=== PATIENT | male | born 1955 | race Caucasian/White ===

== ENCOUNTER 2017-10-25 09:29 | Emergency (ER) | payer BC, OTHER ==
--- NOTE | 2017-10-25 09:37 | UC ---
Skin Complaint HPI - HPI Summary HPI Summary: 62 yo male presents with ?skin infection to right lower abdomen. He tells me that he has had multiple abdominal surgeries over the last 10 years and has had this happen in the past where he gets "infections" around his scar tissue. He tells me that 3 days ago he noticed some redness and hardness to his right lower abdomen. Has been getting larger and harder since that time. Mild pain and warmth. Denies fever, chills, SOB, chest pain, n/v/d/c. - History of Current Complaint Time Seen by Provider: 10/25/17 09:37 Stated Complaint: SKIN COMPLAINT Hx Obtained From: Patient Onset/Duration: Gradual Onset Onset Severity: Mild Current Severity: Mild Pain Intensity: 2 Pain Scale Used: 0-10 Numeric - Allergy/Home Medications Allergies/Adverse Reactions: Allergies Allergy/AdvReac Type Severity Reaction Status Date / Time No Known Allergies Allergy Verified 10/25/17 09:40 Review of Systems Constitutional: Negative Skin: Other - Abscess abdomen Respiratory: Negative Cardiovascular: Negative Gastrointestinal: Negative Neurovascular: Negative Neurological: Negative Psychological: Negative All Other Systems Reviewed And Are Negative: Yes PMH/Surg Hx/FS Hx/Imm Hx Endocrine History: Hypothyroidism - Surgical History Surgical History: Yes Surgery Procedure, Year, and Place: hernia repair abd x 2, prostate surgery, surgery for diverticulitis - Family History Known Family History: Positive: Hypertension - father, Diabetes - brother - Social History Occupation: Employed Full-time Lives: With Family Alcohol Use: None Substance Use Type: None Smoking Status (MU): Heavy Every Day Tobacco Smoker Type: Cigarettes Amount Used/How Often: 1 ppd Physical Exam - Summary Physical Exam Summary: GENERAL: NAD. WDWN. No pain distress. SKIN: Abdomen right lower quad: 3.0cm diameter of hardness and mild tenderness with surrounding erythema. No streaking, bleeding, or drainage. NECK: Supple. Nontender. No lymphadenopathy. CHEST: No accessory muscle use. Breathing comfortably and in no distress. CV: Pulses intact. Cap refill <2seconds NEURO: Alert. CN II-XII grossly intact. PSYCH: Age appropriate behavior. Triage Information Reviewed: Yes Vital Signs: Vital Signs: Temp Pulse Resp BP Pulse Ox 98.2 F 94 18 119/74 99 10/25/17 09:37 10/25/17 09:37 10/25/17 09:37 10/25/17 09:37 10/25/17 09:37 Vital Signs Reviewed: Yes Course/Dx - Course Course Of Treatment: A time out was performed, witnessed, and signed. The area was cleansed with an alcohol pad. 2mL of 2% lidocaine without epi was administered and good anesthetization was achieved. A #11 blade was used to make a 5mm vertical incision. Serosanguineous fluid was able to be expressed, but no purulent matter. The wound was bandaged with telfa . Pt tolerated procedure well. Suspect that this could be cystic or fluid accumulations around adhesions/scar tissue. Will cover him for cellulitis or infectious process, but strongly advised to f/u with his PCP or gen surg for further eval. Pt has an appt on 10/30 with his PCP. - Diagnoses Provider Diagnoses: skin abscess abdomen Procedures - Incision and Drainage Right Lower Abdomen Anesthesia: Local Instrument(s): Scalpel - 11 Packing: Other - None Discharge - Sign-Out/Discharge Documenting (check all that apply): Patient Departure All imaging exams completed and their final reports reviewed: No Studies - Discharge Plan Condition: Stable Disposition: HOME Prescriptions: Sulfamethox/Trimethoprim DS* [Bactrim DS 800/160 TAB*] 1 tab PO BID #14 tab Patient Education Materials: Abscess (ED) Referrals: Herve Jalloh MD [Primary Care Provider] - Additional Instructions: If you develop a fever, shortness of breath, chest pain, new or worsening symptoms - please call your PCP or go to the ED. - Billing Disposition and Condition Condition: STABLE Disposition: Home
[2017-10-25 09:41] VITALS: BP 119/74
[2017-10-25] MEDS ORDERED: Lidocaine 2% PF * 5 ML VIAL INJ ONE (09:49)
== END 2017-10-25 10:30 | disposition home or self-care (01) ==
LOC: UCEAST 09:29
DX: L02.211 Cutaneous abscess of abdominal wall (principal); E03.9 Hypothyroidism, unspecified
CPT/HCPCS: 10060; 99212; G0463

== ENCOUNTER 2017-11-06 09:36 | Inpatient (IN) | payer BC ==
[~2017-11-06 09:36] MED LIST: Buffered Lidocaine 0.9% SYRIN* 5 ML/SYR SYRINGE INTRADERM ONE; Sodium Citrate/Citric Acid* 15 ML UDC PO ONE; ZOSYN 3.375 GM x ONE DOSE over 30 miuntes IVPB
[2017-11-06] MEDS ORDERED: Sodium Citrate/Citric Acid* 15 ML UDC ONE (10:02)
[2017-11-06] MEDS ORDERED: Acetaminophen IV 1GM/100ML * 1,000 MG/100 ML VIAL IVPB ONE (12:25)
[2017-11-06] MEDS ORDERED: Naloxone* 0.4 MG/ML 1 ML VIAL IV PRN (12:25)
[2017-11-06] MEDS ORDERED: DiMENhydriNATE IV* 50 MG/ML VIAL IV PUSH PRN (12:25)
[2017-11-06] MEDS ORDERED: fentaNYL* 50 MCG/ML 2 ML VIAL (100 MCG VIAL) ONE ×2 (12:29→15:33)
[2017-11-06] MEDS ORDERED: Midazolam* 1 MG/ML 2 ML VIAL (2 MG) ONE (12:30)
[2017-11-06] MEDS ORDERED: Lidocaine 2% PF * 5 ML VIAL ONE (12:30)
[2017-11-06] MEDS ORDERED: Propofol* 10 MG/ML 20 ML BTL IV PUSH ONE (12:30)
[2017-11-06] MEDS ORDERED: Rocuronium* 10 MG/ML VIAL ONE ×2 (12:31→13:16)
[2017-11-06] MEDS ORDERED: KETAMINE HCL* 50 MG/ML 10 ML VIAL ONE (12:44)
[2017-11-06] MEDS ORDERED: Neostigmine Methylsulfate* 1 MG/ML 10 ML VIAL (1 mg/ml) ONE (14:43)
[2017-11-06] MEDS ORDERED: Glycopyrrolate IV* 0.2 MG/ML 1 ML VIAL ONE (14:43)
[2017-11-06] MEDS ORDERED: Ondansetron INJ* 2 MG/ML VIAL ONE (14:44)
[2017-11-06] MEDS ORDERED: Ketorolac INJ* 30 MG/ML 1 ML VIAL ONE (15:00)
[2017-11-06 15:43] LABS: ABS Basophils 0.1 10^3/ul (0-0.2); ABS Eosinophils 0.2 10^3/ul (0-0.6); ABS Lymphocytes 2.2 10^3/ul (1.0-4.8); ABS Monocytes 1.2 10^3/ul (0-0.8); ABS Neutrophils 14.4 10^3/ul (1.5-7.7); ABS Nucleated RBC 0 10^3/ul; Eosinophil % 1.2 % (0-6); Hematocrit 34 % (42-52); Hemoglobin 10.9 g/dl (14.0-18.0); Lymphocyte % 12.1 % (25-47); Mean Corpuscular HGB Conc 33 g/dl (31-36); Mean Corpuscular Hemoglobin 28 pg (27-31); Mean Corpuscular Volume 86 fL (80-94); Mean Platelet Volume 7.7 um3 (7.4-10.4); Nucleated Red Blood Cells % 0.1; Platelet Count 395 10^3/ul (150-450); Red Blood Count 3.93 10^6/ul (4.00-5.40); Red Cell Distribution Width 15 % (10.5-15); White Blood Count 18.1 10^3/ul (3.5-10.8)
[2017-11-06 15:54] LABS: EGFR Non-African American 95.9 (>60)
[2017-11-06] MEDS ORDERED: Acetaminophen IV 1GM/100ML * 100 ML ONE (16:19)
[2017-11-06] MEDS ORDERED: fentaNYL* 50 MCG/ML 5 ML VIAL (250 MCG VIAL) ONE (16:19)
[2017-11-06] MEDS: fentaNYL* 50 MCG/ML 2 ML VIAL (100 MCG VIAL) IV PRN ×4 (16:21→16:49)
[2017-11-06] MEDS ORDERED: HYDROmorphone PCA* 20 MG/20 ML PCA.SYRING ONE (16:30)
[2017-11-06] MEDS ORDERED: D5LR 1000 ML BAG* 1,000 ML IV SCH (17:00)
[2017-11-06] MEDS ORDERED: HYDROmorphone INJ1* 1 MG/ML SYRINGE ONE (17:47)
[2017-11-06] MEDS ORDERED: Piperacillin/Tazobactam VIAL*) 3.375 GM in NS 0.9% 100 ML* 100 ML IVPB SCH (18:00)
[2017-11-06] MEDS ORDERED: Naloxone* 0.4 MG/ML 1 ML VIAL IV PUSH PRN (18:44)
[2017-11-06] MEDS ORDERED: NS 0.9% 1000 ML* 1,000 ML IV SCH ×2 (18:45→19:30)
[2017-11-06] MEDS ORDERED: HYDROmorphone INJ1* 1 MG/ML SYRINGE IV ONE (19:00)
[2017-11-06] MEDS: Ketorolac INJ* 30 MG/ML 1 ML VIAL IV SCH (21:50)
[2017-11-06] MEDS: Docusate CAP* 100 MG PO SCH (21:50)
[2017-11-06] MEDS: Heparin VIAL(*) 5000 UNITS/ML VIAL (FIVE THOUSAND) SUBCUT SCH (21:56)
[2017-11-06] MEDS: Piperacillin/Tazobactam VIAL*) 3.375 GM in NS 0.9% 100 ML* 100 ML IVPB SCH (21:56)
--- NOTE | 2017-11-07 01:29 | OP ---
CC: Dr. Jalloh * DATE OF OPERATION: 11/06/17 - ROOM #347 DATE OF : 51 SURGEON: Joaquin Berrios MD DIRECTOR OF CASINO MARKETING: Vanessa Valerio NP ANESTHESIOLOGIST: Dr. Gee. ANESTHESIA: General anesthetic. 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 OPERATIVE PROCEDURE: Evacuation of abdominal abscess with en bloc resection of small bowel with infected mesh. DESCRIPTION OF PROCEDURE: The patient was supine on the operative table. After adequate general anesthetic, compression stockings, Patrice Hugger warmer, intravenous antibiotics, the abdomen was prepped with antiseptic and draped in a sterile fashion. The right side of the abdomen was manipulated thereby causing some purulence to exit the chronic sinus tract and this was sent for culture. An elliptical incision was then created encompassing the chronic sinus tract and this was carried down to some dense fibrotic reactive tissue, which extended well out into the right abdomen by palpation. It was felt best to enter the abdomen above and below this area and that was then accomplished. Small bowel adhesions were taken down until it was identified that there was a single loop of small bowel that was fibrotically adherent down to the back of the mesh, and therefore would have to be taken off with the mesh, the bowel before and after the side was divided with a SANTHOSH stapler and then the bowel and mesh were removed en bloc with evacuation of the abscess that was feculent smelling and bile stained. The specimen included the small bowel, the mesh and the chronic sinus tract. This was sent in formalin for pathologic evaluation. Reanastomosis was carried out using a SANTHOSH 60 stapler. Silk suture was used to reinforce the staple line and secure the crotch in the anastomosis. The mesenteric defect was closed with Vicryl suture. The bowel was dropped back into the abdominal cavity. Copious irrigation was carried out throughout the abdominal cavity. There was a partial thickness muscular defect in the right abdomen with the mesh had been adherent. This was closed transversely with #1 Vicryl. The midline fascia was then closed using #1 PDS and double-loop PDS was used for internal retention sutures. The wound was then irrigated impact with saline soaked gauze and bulky gauze dressing. He was awakened and brought to recovery in good condition. No complications. No drains. Pathologic specimen as above. Sponge and instrument counts correct. Estimated blood loss was 200 mL. [id number]/[facility] #: [id number] [facility]
[2017-11-07] MEDS: Ketorolac INJ* 30 MG/ML 1 ML VIAL IV SCH ×4 (02:32→20:41)
[2017-11-07] MEDS: Levothyroxine TAB* 175 MCG TAB PO SCH (05:58)
[2017-11-07] MEDS: Piperacillin/Tazobactam VIAL*) 3.375 GM in NS 0.9% 100 ML* 100 ML IVPB SCH ×3 (05:58→23:34)
[2017-11-07] MEDS: Heparin VIAL(*) 5000 UNITS/ML VIAL (FIVE THOUSAND) SUBCUT SCH ×3 (05:59→23:33)
[2017-11-07 06:18] LABS: ABS Basophils 0.1 10^3/ul (0-0.2); ABS Eosinophils 0.1 10^3/ul (0-0.6); ABS Lymphocytes 1.5 10^3/ul (1.0-4.8); ABS Monocytes 0.9 10^3/ul (0-0.8); ABS Neutrophils 15.4 10^3/ul (1.5-7.7); ABS Nucleated RBC 0 10^3/ul; Eosinophil % 0.3 % (0-6); Hematocrit 34 % (42-52); Hemoglobin 11.1 g/dl (14.0-18.0); Lymphocyte % 8.6 % (25-47); Mean Corpuscular HGB Conc 33 g/dl (31-36); Mean Corpuscular Hemoglobin 28 pg (27-31); Mean Corpuscular Volume 86 fL (80-94); Mean Platelet Volume 7.7 um3 (7.4-10.4); Nucleated Red Blood Cells % 0; Platelet Count 360 10^3/ul (150-450); Red Blood Count 3.91 10^6/ul (4.00-5.40); Red Cell Distribution Width 15 % (10.5-15)
[2017-11-07] MEDS: Docusate CAP* 100 MG PO SCH ×2 (08:19→23:33)
[2017-11-07] MEDS: NS 0.9% 1000 ML* 1,000 ML IV SCH (11:27)
[2017-11-07] MEDS: HYDROmorphone PCA* 20 MG/20 ML PCA.SYRING PCA SCH (14:51)
--- NOTE | 2017-11-07 15:14 | PN ---
Progress Note - Progress Note Date of Service: 11/07/17 Note: Abdominal dressing changed,open midline wound,clean;less surrounding erythema; minimal tenderness;moist normal saline kerlix packed into wound and covered with bulky 4x4's and abd pads. Juan,PAINTER MIRROR
[2017-11-07] MEDS: Acetaminophen TAB* 325 MG PO PRN (17:56)
[2017-11-08] MEDS: Ketorolac INJ* 30 MG/ML 1 ML VIAL IV SCH ×3 (02:13→14:50)
[2017-11-08] MEDS: Ondansetron INJ* 2 MG/ML VIAL IV PRN ×2 (03:59→12:15)
[2017-11-08] MEDS ORDERED: Aspirin 81 mg CHEW TAB* 81 MG TAB.CHEW PO ONE (05:38)
[2017-11-08] MEDS ORDERED: Metoprolol Tartrate TAB* 25 MG PO ONE (05:40)
--- NOTE | 2017-11-08 05:42 | CONSULT ---
Consult Consult: PCP: Belkis Jalloh MD Surgery: Belkis Flores MD Date/Time: [id number] Reason for Consult: chest pressure HPI: Mr Mai is a 62YO male HX hypothyroidism and prostate CA who is POD 2 s/p infected hernia mesh removal. He has had intermittent brief episodes of non- exertional non-radiating chest pressure. While he has had some mild SOB, this is not unexpected post-op abdominal surgery. He has also had some sweating and nausea with dry heaves, again not unreasonable given his infection and post-op status. These symptoms have not correlated with the chest pressure. He has had no palpitations nor light-headedness. He is obese and smokes ~1/4PPD cigarettes , but does not have HTN, HLD, DM2, personal or family HX CAD. He is currently pain-free and is unaware of any exacerbating or alleviating factors. 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 Father passed at 75 2nd perforated gastric ulcer w/ HX prostate CA. Youngest brother is alive at 59 and healthy. Middle brother passed at 50 2nd tongue CA. Oldest brother is alive & recently diagnosed with colon CA. ROS: as above, otherwise reviewed and all were negative vitals: Vital Signs Temp 36.6 C 11/08/17 03:08 Pulse 95 11/08/17 03:08 Resp 20 11/08/17 04:15 BP 114/63 11/08/17 03:08 Pulse Ox 95 11/08/17 04:15 Intake & Output 09/09/1711/07/17 11/08/17 11:59 23:59 11:59 Intake Total 545 3679 Output Total 275 575 Balance 270 3104 Intake: IV Fluids 2009 ABX - ZOSYN 130 NS (0.9%) 1880 IVPB 105 129 ABX - ZOSYN 105 129 Oral 440 1540 Output: Urine 0 575 [place]far[place] 275 Other: Estimated Void Medium Medium # Voids 1 1 Constitutional: NAD, normally developed, obese white male HEENM: atraumatic; sclera/conjunctiva: anicteric/clear; hearing: clinically intact; oropharynx: clear, mucosa moist Neck: soft tissue: non-tender; thyroid: normal Pulmonary: clear to auscultation bilaterally, good aeration, no accessory muscle use CV: RR/RR, normal S1S2, no carotid bruit, no jugular venous distention, 2+ B DP/ PT, no edema Abdominal: soft, non-distended, diffusely moderately tender within the expected range for his recent surgery, no rebound/rigidity, hypoactive bowel sounds, no hepatosplenomegaly or masses, no costovertebral angle tenderness Musculoskeletal: general: grossly intact, non-tender Integumental: normal appearance and texture of exposed skin, abdominal dressing in place Psychiatric orientation: AA&O to PPS affect: calm mood: cooperative eye contact: good content: reliable responses: timely insight: good Testing: Lab Results 11/06/17 11/06/17 11/07/17 Range/Units 15:19 15:19 05:52 WBC 18.1 H 18.0 H (3.5-10.8) 10^3/ul RBC 3.93 L 3.91 L (4.00-5.40) 10^6/ul Hgb 10.9 L 11.1 L (14.0-18.0) g/dl Hct 34 L 34 L (42-52) % MCV 86 86 (80-94) fL MCH 28 28 (27-31) pg MCHC 33 33 (31-36) g/dl RDW 15 15 (10.5-15) % Plt Count 395 360 (150-450) 10^3/ul MPV 7.7 7.7 (7.4-10.4) um3 Neut % (Auto) 79.5 85.5 H (38-83) % Lymph % (Auto) 12.1 L 8.6 L (25-47) % [place] % (Auto) 6.6 5.3 (0-7) % Eos % (Auto) 1.2 0.3 (0-6) % Baso % (Auto) 0.6 0.3 (0-2) % Absolute Neuts (auto) 14.4 H 15.4 H (1.5-7.7) 10^3/ul Absolute Lymphs (auto) 2.2 1.5 (1.0-4.8) 10^3/ul Absolute Monos (auto) 1.2 H 0.9 H (0-0.8) 10^3/ul Absolute Eos (auto) 0.2 0.1 (0-0.6) 10^3/ul Absolute Basos (auto) 0.1 0.1 (0-0.2) 10^3/ul Absolute Nucleated RBC 0 0 10^3/ul Nucleated RBC % 0.1 0 Sodium 135 (135-145) mmol/L Potassium 4.5 (3.5-5.0) mmol/L Chloride 106 (101-111) mmol/L Carbon Dioxide 25 (22-32) mmol/L Anion Gap 4 (2-11) mmol/L BUN 12 (6-24) mg/dL Creatinine 0.81 (0.67-1.17) mg/dL Est GFR ( Amer) 116.1 (>60) Est GFR (Non-Af Amer) 95.9 (>60) BUN/Creatinine Ratio 14.8 (8-20) Glucose 146 H (70-100) mg/dL Calcium 7.8 L (8.6-10.3) mg/dL Magnesium (1.9-2.7) mg/dL Total Bilirubin (0.2-1.0) mg/dL AST (13-39) U/L ALT (7-52) U/L Alkaline Phosphatase (34-104) U/L Total Protein (6.4-8.9) g/dL Albumin (3.2-5.2) g/dL Globulin (2-4) g/dL Albumin/Globulin Ratio (1-3) 11/07/17 Range/Units 05:52 WBC (3.5-10.8) 10^3/ul RBC (4.00-5.40) 10^6/ul Hgb (14.0-18.0) g/dl Hct (42-52) % MCV (80-94) fL MCH (27-31) pg MCHC (31-36) g/dl RDW (10.5-15) % Plt Count (150-450) 10^3/ul MPV (7.4-10.4) um3 Neut % (Auto) (38-83) % Lymph % (Auto) (25-47) % [place] % (Auto) (0-7) % Eos % (Auto) (0-6) % Baso % (Auto) (0-2) % Absolute Neuts (auto) (1.5-7.7) 10^3/ul Absolute Lymphs (auto) (1.0-4.8) 10^3/ul Absolute Monos (auto) (0-0.8) 10^3/ul Absolute Eos (auto) (0-0.6) 10^3/ul Absolute Basos (auto) (0-0.2) 10^3/ul Absolute Nucleated RBC 10^3/ul Nucleated RBC % Sodium 135 (135-145) mmol/L Potassium 4.4 (3.5-5.0) mmol/L Chloride 106 (101-111) mmol/L Carbon Dioxide 24 (22-32) mmol/L Anion Gap 5 (2-11) mmol/L BUN 13 (6-24) mg/dL Creatinine 0.90 (0.67-1.17) mg/dL Est GFR ( Amer) 102.8 (>60) Est GFR (Non-Af Amer) 85.0 (>60) BUN/Creatinine Ratio 14.4 (8-20) Glucose 100 (70-100) mg/dL Calcium 8.0 L (8.6-10.3) mg/dL Magnesium 1.6 L (1.9-2.7) mg/dL Total Bilirubin 0.50 (0.2-1.0) mg/dL AST 13 (13-39) U/L ALT 11 (7-52) U/L Alkaline Phosphatase 51 (34-104) U/L Total Protein 5.7 L (6.4-8.9) g/dL Albumin 2.7 L (3.2-5.2) g/dL Globulin 3.0 (2-4) g/dL Albumin/Globulin Ratio 0.9 L (1-3) ECG, personally reviewed: NSR rate 99, inverted T-wave in III Impression: 62M HX hypothyroidism & prostate CA s/p prostatectomy POD 2 infected ventral hernia mesh removal with intermittent brief atypical chest discomfort DIAGNOSIS & PLAN Primary chest discomfort : Q6H troponin x2 : telemetry : aspirin 324mg PO x1 : metoprolol 25mg PO x1 : overall, I doubt this represents a primary cardiac etiology, but will proceed on the side of caution as he does have risk factors : f/u with PCP after discharge to consider outpatient stress testing for completeness POD 2 infected ventral hernia mesh excision : management per surgery Secondary hypothyroidism : continue levothyroxine HX prostate CA : s/p prostatectomy : no acute concerns or issues
[2017-11-08] MEDS: Piperacillin/Tazobactam VIAL*) 3.375 GM in NS 0.9% 100 ML* 100 ML IVPB SCH ×3 (05:57→22:19)
[2017-11-08] MEDS: Heparin VIAL(*) 5000 UNITS/ML VIAL (FIVE THOUSAND) SUBCUT SCH ×4 (05:57→22:12)
[2017-11-08] MEDS: Levothyroxine TAB* 175 MCG TAB PO SCH (06:27)
[2017-11-08] MEDS ORDERED: Nitroglycerin TAB 0.4 MG* 0.4 MG TAB SL PRN (07:46)
--- NOTE | 2017-11-08 07:50 | PN ---
Hospitalist Progress Note Date of Service: 11/08/17 I have seen and examined Mr. Mai this morning in follow up to Dr. Mcneil's consult for intermittent chest pain x 3 since surgery yesterday. He has had one episode of chest discomfort since this morning, lasted for a few minutes, described as feeling like heartburn, and relieved on its own. I reviewed his EKG and troponin. He is being transferred to [address] [place] [id number], is on tele, has serial troponins ordered. I will recheck an EKG this morning, and we will try nitro prn if the chest pain returns. If that does not work, we will try maalox. I have explained the findings so far and the plan to him.
[2017-11-08] MEDS: Docusate CAP* 100 MG PO SCH ×2 (08:45→22:12)
[2017-11-08] MEDS: NS 0.9% 1000 ML* 1,000 ML IV SCH ×2 (08:46→20:58)
[2017-11-08] MEDS: Al Hydrox/Mg Hydrox/Simet LIQ* 30 ML UDC PO PRN (09:26)
--- NOTE | 2017-11-08 09:42 | PN ---
Progress Note - Progress Note Date of Service: 11/08/17 SOAP: Subjective: Events of last night noted Care discussed with Dr. Brown He complains of chest discomfort at times, feels it is reflux No SOB, slight nausea, no vomiting, no flatus Sitting up in chair Objective: Temp Pulse Resp BP Pulse Ox 97.9 F 110 18 128/74 95 11/08/17 08:31 11/08/17 08:31 11/08/17 08:31 11/08/17 08:31 11/08/17 08:31 Intake & Output 11/06/17 11/07/17 11/08/17 11/09/17 06:59 06:59 06:59 06:59 Intake Total 3325 4238 Output Total 675 775 Balance 2650 3463 Weight 216 lb 211 lb Intake: IV Fluids 2300 2222 ABX - ZOSYN 130 LR 2300 NS (0.9%) 2092 IVPB 105 236 ABX - ZOSYN 105 236 Oral 920 1780 Output: Urine 0 775 Mcfarland 675 Other: Estimated Void Medium # Bowel Movements 0 # Voids 1 PEX: Comfortable Lungs clear with decreased breath sounds at the bases. Abd is soft and distended. Open incision is clean and pink, packing was changed at bedside No bowel sounds are present. Slight erythema surrounding skin. Ext without edema Laboratory Results - last 24 hr 11/08/17 05:40 Troponin I 0.05 H* Other labs are pending Cultures reviewed Assessment: POD#2 s/p exlap, small bowel resection, removal of infected mesh. Chest pain post-op ileus Plan: Cardiac monitoring-appreciate hospitalist consult Wound care IV abx PO as tolerated- Check labs Pulmonary toilet PPI
[2017-11-08] MEDS ORDERED: ALPRAZolam TAB* 0.25 MG PO PRN (10:13)
[2017-11-08] MEDS: Pantoprazole IV* 40 MG IV SCH (10:18)
[2017-11-08 11:42] LABS: Hematocrit 32 % (42-52); Hemoglobin 10.2 g/dl (14.0-18.0); Mean Corpuscular HGB Conc 32 g/dl (31-36); Mean Corpuscular Hemoglobin 28 pg (27-31); Mean Corpuscular Volume 86 fL (80-94); Mean Platelet Volume 7.7 um3 (7.4-10.4); Platelet Count 373 10^3/ul (150-450); Red Blood Count 3.69 10^6/ul (4.00-5.40); Red Cell Distribution Width 15 % (10.5-15)
[2017-11-08 11:55] LABS: EGFR Non-African American 74.4 (>60)
[2017-11-08 12:06] LABS: ABS Basophils 0.1 10^3/ul (0-0.2); ABS Eosinophils 0.1 10^3/ul (0-0.6); ABS Monocytes 1.3 10^3/ul (0-0.8); ABS Neutrophils 21.5 10^3/ul (1.5-7.7); ABS Nucleated RBC 0 10^3/ul; Eosinophil % 0.5 % (0-6); Lymphocyte % 4.3 % (25-47); Nucleated Red Blood Cells % 0
[2017-11-08] MEDS: HYDROmorphone PCA* 20 MG/20 ML PCA.SYRING PCA SCH (13:53)
--- NOTE | 2017-11-08 18:08 | PN ---
Hospitalist Progress Note Date of Service: 11/08/17 I re-evaluated Mr. Mai this afternoon. He is feeling much better after maalox and xanax. I discussed his mildly elevated troponin, which is difficult to analyze in the setting of the stress of surgery and an infected mesh; and explained that his EKG was unchanged. I suggested he may consider a stress test as an outpatient when he recovers from this surgery. He understands and is appreciative.
[2017-11-08] MEDS: NS 0.9% IVPB SCH (22:12)
[2017-11-08] MEDS: TAZOBACTAM IVPB SCH (22:12)
[2017-11-08] MEDS: PIPERACILLIN IVPB SCH (22:12)
[2017-11-09] MEDS: Al Hydrox/Mg Hydrox/Simet LIQ* 30 ML UDC PO PRN (03:15)
[2017-11-09] MEDS: Heparin VIAL(*) 5000 UNITS/ML VIAL (FIVE THOUSAND) SUBCUT SCH ×3 (05:36→21:52)
[2017-11-09] MEDS: Levothyroxine TAB* 175 MCG TAB PO SCH (05:36)
[2017-11-09] MEDS: NS 0.9% IVPB SCH ×3 (05:36→21:54)
[2017-11-09] MEDS: TAZOBACTAM IVPB SCH ×3 (05:36→21:54)
[2017-11-09] MEDS: PIPERACILLIN IVPB SCH ×3 (05:36→21:54)
[2017-11-09 06:04] LABS: ABS Basophils 0.1 10^3/ul (0-0.2); ABS Eosinophils 0.6 10^3/ul (0-0.6); ABS Lymphocytes 1.1 10^3/ul (1.0-4.8); ABS Monocytes 1.2 10^3/ul (0-0.8); ABS Neutrophils 14.9 10^3/ul (1.5-7.7); ABS Nucleated RBC 0 10^3/ul; Eosinophil % 3.1 % (0-6); Hematocrit 28 % (42-52); Hemoglobin 9.3 g/dl (14.0-18.0); Lymphocyte % 6.2 % (25-47); Mean Corpuscular HGB Conc 33 g/dl (31-36); Mean Corpuscular Hemoglobin 28 pg (27-31); Mean Corpuscular Volume 86 fL (80-94); Mean Platelet Volume 7.7 um3 (7.4-10.4); Nucleated Red Blood Cells % 0; Platelet Count 327 10^3/ul (150-450); Red Blood Count 3.31 10^6/ul (4.00-5.40); Red Cell Distribution Width 15 % (10.5-15); White Blood Count 17.8 10^3/ul (3.5-10.8)
[2017-11-09 06:26] LABS: EGFR Non-African American 100.2 (>60)
[2017-11-09] MEDS: NS 0.9% 1000 ML* 1,000 ML IV SCH ×2 (07:16→17:55)
--- NOTE | 2017-11-09 09:43 | PN ---
Subjective Date of Service: 11/09/17 Interval History: No overnight events. No further chest pain. No SOB. Is ambulating without any chest pain. States his chest pain was not really chest pain but in his stomach after he would take sips of water and then travel upwards Objective Active Medications: Acetaminophen (Tylenol Tab*) 650 mg PO Q4H PRN PRN Reason: Pain Or Temperature >101 F Last Admin: 11/07/17 17:56 Dose: 650 mg Al Hydrox/Mg Hydrox/Simethicone (Maalox Plus*) 30 ml PO Q4H PRN PRN Reason: INDIGESTION Last Admin: 11/09/17 03:15 Dose: 30 ml Alprazolam (Xanax Tab*) 0.25 mg PO DAILY [facility] Docusate Sodium (Colace Cap*) 100 mg PO BID [facility] Last Admin: 11/08/17 22:12 Dose: 100 mg Heparin Sodium (Porcine) (Heparin Vial(*)) 5,000 units SUBCUT Q8HR [facility] Last Admin: 11/09/17 05:36 Dose: 5,000 units Hydromorphone HCl (Dilaudid Vapor Coater*) 20 mg in 20 mls @ 0 mls/hr [employer] .change Q24H [facility]; Protocol Last Admin: 11/08/17 13:53 Dose: 1 mls/hr Sodium Chloride (Ns 0.9% 1000 Ml*) 1,000 mls @ 100 mls/hr IV PER RATE [facility] Last Admin: 11/09/17 07:16 Dose: 100 mls/hr Piperacillin Sod/Tazobactam (Sod 3.375 gm/ Sodium Chloride) 50 mls @ 12.5 mls/ hr IVPB 0600,1400,2200 [facility] Last Admin: 11/09/17 05:36 Dose: 12.5 mls/hr Levothyroxine Sodium (Synthroid Tab*) 175 mcg PO 0600 [facility] Last Admin: 11/09/17 05:36 Dose: 175 mcg Naloxone HCl (Narcan*) 0.08 mg IV PUSH .Q2MIN PRN PRN Reason: OVERSEDATION Nitroglycerin (Nitroglycerin Tab 0.4 Mg*) 0.4 mg SL Q5M PRN PRN Reason: ANGINA Last Admin: 11/08/17 08:45 Dose: 0.4 mg Ondansetron HCl (Zofran Inj*) 4 mg IV Q6H PRN PRN Reason: NAUSEA/VOMITING Last Admin: 11/08/17 12:15 Dose: 4 mg Pantoprazole Sodium (Protonix Iv*) 40 mg IV Q24H [facility] Last Admin: 11/08/17 10:18 Dose: 40 mg Vital Signs - 8 hr 11/09/17 11/09/17 11/09/17 02:00 03:06 03:45 Temperature 97.8 F Pulse Rate 84 Respiratory 24 20 Rate Blood Pressure 112/64 (mmHg) O2 Sat by Pulse 94 94 95 Oximetry 11/09/17 11/09/17 04:00 06:00 Temperature Pulse Rate Respiratory 24 24 Rate Blood Pressure (mmHg) O2 Sat by Pulse 94 93 Oximetry Oxygen Devices in Use Now: Nasal Cannula Appearance: NAD Ears/Nose/Mouth/Throat: Mucous Membranes Moist Neck: Trachea Midline Respiratory: Symmetrical Chest Expansion and Respiratory Effort, Clear to Percussion Cardiovascular: RRR, - - soft systolic murmur Abdominal: - - hypoactive bowel sounds, soft, diffuse tenderness. bandage midline - clear dry and intact Extremities: - Skin: - - +1 pretibial edema Neurological: Alert and Oriented x 3, NL Muscle Strength and Tone Result Diagrams: 11/09/17 05:16 11/09/17 05:16 Microbiology and Other Data: Microbiology 11/06/17 13:08 Anaerobic Culture - Preliminary Wound - Abdominal Bacteroides Vulgatus Skin and Soft Tissue MRSA/MSSA (PCR - Final Mrsa Negative S.aureus Negative Gram Stain - Final Wound Culture - Preliminary Escherichia Coli Klebsiella Oxytoca Gram Negative Bacilli Streptococcus Constellatus Bacteroides Vulgatus Assess/Plan/Problems-Billing Assessment: This is a 62 yr old who is admitted for an infected mesh consulted for chest pain. - Patient Problems (1) Chest pain Current Visit: Yes Status: Acute Code(s): R07.9 - CHEST PAIN, UNSPECIFIED SNOMED Code(s): 73009260 Comment: A. Appears more like indigestion related and noncardiac Troponins unremarkable. No further CP Plan Continue IV PPI Recommend outpatient stress test Transfer to short stay (2) Infected hernioplasty mesh Current Visit: Yes Status: Acute Code(s): T85.79XA - INFECT/INFLM REACTION DUE TO OTH INT PROSTH DEV/GRFT, INIT SNOMED Code(s): 288125865 Comment: A/P - Per surgery (3) Hypothyroidism Current Visit: Yes Status: Acute Code(s): E03.9 - HYPOTHYROIDISM, UNSPECIFIED SNOMED Code(s): 10747072 Comment: A/P - Continue synthroid (4) Anxiety Current Visit: Yes Status: Acute Code(s): F41.9 - ANXIETY DISORDER, UNSPECIFIED SNOMED Code(s): 27822996 Comment: A/P - continue xanax (5) DVT prophylaxis Current Visit: Yes Status: Acute Code(s): XBN8681 - SNOMED Code(s): 390125200 Comment: Heparin SQ (6) Full code status Current Visit: Yes Status: Acute Code(s): Z78.9 - OTHER SPECIFIED HEALTH STATUS SNOMED Code(s): 166981400 Status and Disposition: Dispo per surgery
[2017-11-09] MEDS: Pantoprazole IV* 40 MG IV SCH (09:58)
[2017-11-09] MEDS: Docusate CAP* 100 MG PO SCH ×2 (09:58→19:21)
[2017-11-09] MEDS: ALPRAZolam TAB* 0.25 MG PO SCH (09:59)
--- NOTE | 2017-11-09 11:00 | PN ---
Progress Note - Progress Note Date of Service: 11/09/17 SOAP: Subjective: Feels much better today-no further CP/nausea, feels it was reflux No flatus or BM, sipping clear liquids Objective: Temp Pulse Resp BP Pulse Ox 97.8 F 84 16 112/64 93 11/09/17 03:45 11/09/17 03:45 11/09/17 09:59 11/09/17 03:45 11/09/17 06:00 Intake & Output 11/07/17 11/08/17 11/09/17 11/10/17 06:59 06:59 06:59 06:59 Intake Total 3325 4238 1305 Output Total 339 755 1587 Balance 2650 3463 205 Weight 211 lb Intake: IV Fluids 2300 2222 100 ABX - ZOSYN 130 100 LR 2300 NS (0.9%) 2092 IVPB 105 236 65 ABX - ZOSYN 105 236 65 Oral 920 1780 1140 Output: Urine 0 775 1100 [place]far[place] 675 Other: Estimated Void Medium # Bowel Movements 0 0 Estimated Stool Amount Medium # Voids 1 PEX: Comfortable in chair Lungs clear with decreased breath sounds at bases Abd is soft and distended. No bowel sounds appreciated. Midline incision is open clean, fascia intact. Wound re-packed with moist Kerlex. Erythema of abdominal wall slowly improving Ext without edema Laboratory Results - last 24 hr 11/08/17 11/08/17 11/08/17 11:26 11:26 15:05 WBC 24.0 H RBC 3.69 L Hgb 10.2 L Hct 32 L MCV 86 MCH 28 MCHC 32 RDW 15 Plt Count 373 MPV 7.7 Neut % (Auto) 89.4 H Lymph % (Auto) 4.3 L [place] % (Auto) 5.4 Eos % (Auto) 0.5 Baso % (Auto) 0.4 Absolute Neuts (auto) 21.5 H Absolute Lymphs (auto) 1.0 Absolute Monos (auto) 1.3 H Absolute Eos (auto) 0.1 Absolute Basos (auto) 0.1 Absolute Nucleated RBC 0 Nucleated RBC % 0 Sodium 134 L Potassium 4.2 Chloride 103 Carbon Dioxide 25 Anion Gap 6 BUN 10 Creatinine 1.01 Est GFR ( Amer) 90.0 Est GFR (Non-Af Amer) 74.4 BUN/Creatinine Ratio 9.9 Glucose 112 H Calcium 8.3 L Total Bilirubin 0.50 AST 21 ALT 13 Alkaline Phosphatase 61 Troponin I 0.06 H* 0.03 Total Protein 6.3 L Albumin 2.9 L Globulin 3.4 Albumin/Globulin Ratio 0.9 L 11/09/17 11/09/17 05:16 05:16 WBC 17.8 H RBC 3.31 L Hgb 9.3 L Hct 28 L MCV 86 MCH 28 MCHC 33 RDW 15 Plt Count 327 MPV 7.7 Neut % (Auto) 83.5 H Lymph % (Auto) 6.2 L Hall % (Auto) 6.8 Eos % (Auto) 3.1 Baso % (Auto) 0.4 Absolute Neuts (auto) 14.9 H Absolute Lymphs (auto) 1.1 Absolute Monos (auto) 1.2 H Absolute Eos (auto) 0.6 Absolute Basos (auto) 0.1 Absolute Nucleated RBC 0 Nucleated RBC % 0 Sodium 135 Potassium 4.4 Chloride 105 Carbon Dioxide 26 Anion Gap 4 BUN 8 Creatinine 0.78 Est GFR ( Amer) 121.3 Est GFR (Non-Af Amer) 100.2 BUN/Creatinine Ratio 10.3 Glucose 94 Calcium 8.2 L Total Bilirubin AST ALT Alkaline Phosphatase Troponin I Total Protein Albumin Globulin Albumin/Globulin Ratio Micro results noted-multiple GI organisms Assessment: POD# 3 s/p ex lap with SB resection, removal of infected mesh CP resolvePost-op ileus Plan: Transfer back to [facility]--discussed with Dr. 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
[2017-11-09] MEDS: HYDROmorphone PCA* 20 MG/20 ML PCA.SYRING PCA SCH (19:29)
[2017-11-10] MEDS: NS 0.9% 1000 ML* 1,000 ML IV SCH ×2 (04:30→14:44)
[2017-11-10] MEDS: Levothyroxine TAB* 175 MCG TAB PO SCH (05:40)
[2017-11-10] MEDS: Heparin VIAL(*) 5000 UNITS/ML VIAL (FIVE THOUSAND) SUBCUT SCH ×3 (05:41→22:02)
[2017-11-10] MEDS: PIPERACILLIN IVPB SCH (07:12)
[2017-11-10] MEDS: TAZOBACTAM IVPB SCH (07:12)
[2017-11-10] MEDS: NS 0.9% IVPB SCH (07:12)
[2017-11-10] MEDS ORDERED: Piperacillin/Tazobactam VIAL*) 3.375 GM in NS 0.9% 100 ML* 100 ML IVPB SCH (08:00)
--- NOTE | 2017-11-10 08:56 | PN ---
Subjective Date of Service: 11/10/17 Interval History: Mr. Mai reports feeling reasonably well today. His abdominal pain is well controlled with the dilaudid MED AIDE. He feels pressure but has not passed gas or had a bowel movement. He denies nausea with clear liquid intake. He denies chest pain or SOB. Objective Active Medications: Acetaminophen (Tylenol Tab*) 650 mg PO Q4H PRN Al Hydrox/Mg Hydrox/Simethicone (Maalox Plus*) 30 ml PO Q4H PRN Alprazolam (Xanax Tab*) 0.25 mg PO DAILY [facility] Docusate Sodium (Colace Cap*) 100 mg PO BID [facility] Heparin Sodium (Porcine) (Heparin Vial(*)) 5,000 units SUBCUT Q8HR [facility] Hydromorphone HCl (Dilaudid Rim Turning Finisher*) 20 mg in 20 mls @ 0 mls/hr MED AIDE .change Q24H [facility]; Protocol Sodium Chloride (Ns 0.9% 1000 Ml*) 1,000 mls @ 100 mls/hr IV PER RATE [facility] Piperacillin Sod/Tazobactam (Sod 3.375 gm/ Sodium Chloride) 100 mls @ 25 mls/ hr IVPB 0400,1200,2000 [facility] Levothyroxine Sodium (Synthroid Tab*) 175 mcg PO 0600 [facility] Naloxone HCl (Narcan*) 0.08 mg IV PUSH .Q2MIN PRN Nitroglycerin (Nitroglycerin Tab 0.4 Mg*) 0.4 mg SL Q5M PRN Ondansetron HCl (Zofran Inj*) 4 mg IV Q6H PRN Pantoprazole Sodium (Protonix Iv*) 40 mg IV Q24H [facility] Vital Signs: Temp Pulse Resp BP Pulse Ox 98.3 F 87 16 110/66 97 11/10/17 07:31 11/10/17 07:31 11/10/17 07:31 11/10/17 07:31 11/10/17 07:31 Oxygen Devices in Use Now: Nasal Cannula Appearance: Male sitting up in chair in NAD Eyes: No Scleral Icterus Ears/Nose/Mouth/Throat: Mucous Membranes Moist Neck: Trachea Midline Respiratory: Symmetrical Chest Expansion and Respiratory Effort, Clear to Auscultation Cardiovascular: NL Sounds; No Murmurs; No JVD, No Edema Abdominal: - - soft, abdominal binder in place, dressing changed per surgery Lymphatic: No Cervical Adenopathy Extremities: No Edema Skin: No Rash or Ulcers Neurological: Alert and Oriented x 3, NL Muscle Strength and Tone Nutrition: Taking PO's Result Diagrams: 11/09/17 05:16 11/09/17 05:16 Assess/Plan/Problems-Billing Assessment: Mr. Mai is a 62 yr old who is admitted for an infected abdominal mesh. Hospital Medicine was consulted for chest pain. - Patient Problems (1) Infected hernioplasty mesh Comment: - Tolerating clear liquids but no flatus or BM. - Management per surgery. - Continue dilaudid MED AIDE. Encourage mobility. (2) Anxiety Comment: - Continue xanax (3) Chest pain Comment: - Resolved. - Likely indigestion related and noncardiac. Troponins unremarkable. - Continue IV PPI (4) Hypothyroidism Comment: - Continue synthroid (5) DVT prophylaxis Comment: - Heparin SQ (6) Full code status Comment: Status and Disposition: Dispo per surgery
[2017-11-10] MEDS: ALPRAZolam TAB* 0.25 MG PO SCH (10:14)
[2017-11-10] MEDS: Docusate CAP* 100 MG PO SCH ×2 (10:14→19:43)
[2017-11-10] MEDS: Pantoprazole IV* 40 MG IV SCH (10:15)
[2017-11-10] MEDS: Piperacillin/Tazobactam VIAL*) 3.375 GM in NS 0.9% 100 ML* 100 ML IVPB SCH ×2 (12:10→19:43)
--- NOTE | 2017-11-10 17:03 | PN ---
Progress Note - Progress Note Date of Service: 11/10/17 Note: Surgery Progress: S: POD #4. Some pain, generally dull constant, w/ occ sharp "gas". No flatus or BM since surg. Clary clears. No N/V. Equivocal regarding possible advancement of diet. Ambulating. Denies SOB. Current Medications Acetaminophen (Tylenol Tab*) 650 mg PO Q4H PRN PRN Reason: Pain Or Temperature >101 F Last Admin: 11/07/17 17:56 Dose: 650 mg Al Hydrox/Mg Hydrox/Simethicone (Maalox Plus*) 30 ml PO Q4H PRN PRN Reason: INDIGESTION Last Admin: 11/09/17 03:15 Dose: 30 ml Alprazolam (Xanax Tab*) 0.25 mg PO DAILY [facility] Last Admin: 11/10/17 10:14 Dose: 0.25 mg Docusate Sodium (Colace Cap*) 100 mg PO BID [facility] Last Admin: 11/10/17 10:14 Dose: 100 mg Heparin Sodium (Porcine) (Heparin Vial(*)) 5,000 units SUBCUT Q8HR [facility] Last Admin: 11/10/17 14:44 Dose: 5,000 units Hydromorphone HCl (Dilaudid Medical Lab Specialist*) 20 mg in 20 mls @ 0 mls/hr [employer] [employer] [facility] .change Q24H [facility]; Protocol Last Admin: 11/09/17 19:29 Dose: 20 mls/hr Piperacillin Sod/Tazobactam (Sod 3.375 gm/ Sodium Chloride) 100 mls @ 25 mls/ hr IVPB 0400,1200,2000 [facility] Last Admin: 11/10/17 12:10 Dose: 25 mls/hr Sodium Chloride (Ns 0.9% 1000 Ml*) 1,000 mls @ 30 mls/hr IV PER RATE [facility] Last Admin: 11/10/17 14:44 Dose: 30 mls/hr Levothyroxine Sodium (Synthroid Tab*) 175 mcg PO 0600 [facility] Last Admin: 11/10/17 05:40 Dose: 175 mcg Naloxone HCl (Narcan*) 0.08 mg IV PUSH .Q2MIN PRN PRN Reason: OVERSEDATION Nitroglycerin (Nitroglycerin Tab 0.4 Mg*) 0.4 mg SL Q5M PRN PRN Reason: ANGINA Last Admin: 11/08/17 08:45 Dose: 0.4 mg Ondansetron HCl (Zofran Inj*) 4 mg IV Q6H PRN PRN Reason: NAUSEA/VOMITING Last Admin: 11/08/17 12:15 Dose: 4 mg Pantoprazole Sodium (Protonix Iv*) 40 mg IV Q24H [facility] Last Admin: 11/10/17 10:15 Dose: 40 mg O: Vital Signs - 8 hr 11/10/17 11/10/17 11/10/17 10:00 10:14 11:42 Temperature 98.4 F Pulse Rate 89 Respiratory 16 16 16 Rate Blood Pressure 110/69 (mmHg) O2 Sat by Pulse 97 97 Oximetry 11/10/17 11/10/17 11/10/17 12:00 14:00 14:52 Temperature Pulse Rate Respiratory 16 16 16 Rate Blood Pressure (mmHg) O2 Sat by Pulse 97 97 Oximetry 11/10/17 11/10/17 15:24 16:00 Temperature 98.4 F Pulse Rate 89 Respiratory 20 16 Rate Blood Pressure 124/69 (mmHg) O2 Sat by Pulse 96 97 Oximetry Intake and Output Last 24 Hours 11/08/17 11/09/17 11/10/17 11/11/17 06:59 06:59 06:59 06:59 Intake Total 4238 1305 4386 1760 Output Total 775 1100 475 400 Balance 3463 205 3911 1360 Intake: IV Fluids 2222 100 3476 760 ABX - ZOSYN 130 100 70 NS (0.9%) 2092 3406 760 IVPB 236 65 ABX - ZOSYN 236 65 Oral 1780 7897 056 5832 Output: Urine 775 1100 475 400 Other: Estimated Void Medium Small Medium # Bowel Movements 0 0 Estimated Stool Amount Medium # Voids 1 2 Gen: NAD, sitting up in recliner. Heart: reg Lungs: clear upper gutierrez; decreased at both bases Abd: mild to mod distended; tympanitic; absent BS; soft; mild tenderness ( nonlocalized); midline incision clean; moderate serosang drainage on packing which I replaced (saline-moistened Kerlix). Extr: trace edema bilat; SCDs on No labs today. A: s/p drainage abscess; SB rsxn; open wound; improving Prob ileus P: cont abx (Zosyn) cont wound care (considering VAC tomorrow) cont clear liqs until further GI fct encourage IS use and ambulation decrease IVF (significant I>O over past few days)
[2017-11-11] MEDS: Piperacillin/Tazobactam VIAL*) 3.375 GM in NS 0.9% 100 ML* 100 ML IVPB SCH ×3 (03:54→21:13)
[2017-11-11] MEDS: Heparin VIAL(*) 5000 UNITS/ML VIAL (FIVE THOUSAND) SUBCUT SCH ×3 (05:37→21:08)
[2017-11-11] MEDS: Levothyroxine TAB* 175 MCG TAB PO SCH (05:38)
--- NOTE | 2017-11-11 08:50 | PN ---
Subjective Date of Service: 11/11/17 Interval History: Mr. Mai reports feeling better today. He has passed some flatus and reports that his pain is reasonably controlled today. He denies chest pain, SOB. He denies nausea and is tolerating clear oral intake well. Objective Active Medications: Acetaminophen (Tylenol Tab*) 650 mg PO Q4H PRN Al Hydrox/Mg Hydrox/Simethicone (Maalox Plus*) 30 ml PO Q4H PRN Alprazolam (Xanax Tab*) 0.25 mg PO DAILY [facility] Docusate Sodium (Colace Cap*) 100 mg PO BID [facility] Heparin Sodium (Porcine) (Heparin Vial(*)) 5,000 units SUBCUT Q8HR [facility] Hydromorphone HCl (Dilaudid Merchandising Professor*) 20 mg in 20 mls @ 0 mls/hr EDUCATION INSTRUCTOR .change Q24H [facility]; Protocol Piperacillin Sod/Tazobactam (Sod 3.375 gm/ Sodium Chloride) 100 mls @ 25 mls/ hr IVPB 0400,1200,2000 [facility] Sodium Chloride (Ns 0.9% 1000 Ml*) 1,000 mls @ 30 mls/hr IV PER RATE [facility] Levothyroxine Sodium (Synthroid Tab*) 175 mcg PO 0600 [facility] Naloxone HCl (Narcan*) 0.08 mg IV PUSH .Q2MIN PRN Nitroglycerin (Nitroglycerin Tab 0.4 Mg*) 0.4 mg SL Q5M PRN Ondansetron HCl (Zofran Inj*) 4 mg IV Q6H PRN Pantoprazole Sodium (Protonix Iv*) 40 mg IV Q24H [facility] Vital Signs: Temp Pulse Resp BP Pulse Ox 98.5 F 71 16 129/70 93 11/11/17 03:34 11/11/17 03:34 11/11/17 05:40 11/11/17 03:34 11/11/17 05:40 Oxygen Devices in Use Now: Nasal Cannula Appearance: Male sitting up in chair in NAD Eyes: No Scleral Icterus Ears/Nose/Mouth/Throat: Mucous Membranes Moist Neck: Trachea Midline Respiratory: Symmetrical Chest Expansion and Respiratory Effort, Clear to Auscultation Cardiovascular: NL Sounds; No Murmurs; No JVD, - - Trace edema Abdominal: - - Soft, mild tenderness, BS+, abdominal binder in situ Neurological: Alert and Oriented x 3, NL Muscle Strength and Tone Nutrition: Taking PO's Result Diagrams: 11/09/17 05:16 11/09/17 05:16 Assess/Plan/Problems-Billing Assessment: Mr. Mai is a 62 yr old who is admitted for an infected abdominal mesh. Hospital Medicine was consulted for chest pain. - Patient Problems (1) Infected hernioplasty mesh Comment: - Tolerating clear liquids, flatus today but no BM, Surgery to advance to full liquid. - Management per surgery. - Continue dilaudid EDUCATION INSTRUCTOR. Encourage mobility. (2) Anxiety Comment: - Continue xanax (3) Chest pain Comment: - Resolved. - Likely anxiety and/or indigestion related, noncardiac. Troponins unremarkable. - Continue IV PPI (4) Hypothyroidism Comment: - Continue synthroid (5) DVT prophylaxis Comment: - Heparin SQ (6) Full code status Comment: Status and Disposition: Dispo per surgery
[2017-11-11] MEDS: ALPRAZolam TAB* 0.25 MG PO SCH (08:55)
[2017-11-11] MEDS: Pantoprazole IV* 40 MG IV SCH (08:55)
[2017-11-11] MEDS: Docusate CAP* 100 MG PO SCH ×2 (08:55→21:10)
--- NOTE | 2017-11-11 13:57 | PN ---
Progress Note - Progress Note Date of Service: 11/11/17 SOAP: Subjective: Passing flatus today-less discomfort No CP Ambulated in halls Tolerating some liquids Objective: [] Temp Pulse Resp BP Pulse Ox 96.8 F 76 16 117/69 94 11/11/17 07:34 11/11/17 07:34 11/11/17 12:12 11/11/17 07:34 11/11/17 12:00 Intake & Output 11/09/17 11/10/17 11/11/17 11/12/17 06:59 06:59 06:59 06:59 Intake Total 1305 4386 3090 115 Output Total 1100 475 400 Balance 205 3911 2690 115 Intake: IV Fluids 100 3476 990 ABX - ZOSYN 100 70 230 NS (0.9%) 3406 760 IVPB 65 115 ABX - ZOSYN 65 115 Oral 4785 375 7944 Output: Urine 1100 475 400 Other: Estimated Void Small Large Medium # Bowel Movements 0 0 0 Estimated Stool Amount Medium # Voids 2 1 PEX: Comfortable Lungs are clear-decreased breath sounds at bases Abd is soft-remains distended. Bowel sounds are present--higher pitched. Wound is clean and pink-packing removed and wound VAC placed today. Ext with mild edema ankles and feet Assessment: POD# 5 s/p removal infected mesh, small bowel resection Abdominal abscess Post-op ileus Plan: Continue IV abx-cultures reviewed-Zosyn with good coverage Wound VAC for dressing care Pulmonary toilet-increase activity Advance diet as tolerated--continue PNEUMATIC TOOL OPERATOR for now, decrease IVF Recheck labs in AM
[2017-11-12] MEDS: NS 0.9% 1000 ML* 1,000 ML IV SCH (00:05)
[2017-11-12] MEDS: Piperacillin/Tazobactam VIAL*) 3.375 GM in NS 0.9% 100 ML* 100 ML IVPB SCH ×3 (03:49→20:23)
[2017-11-12 05:13] LABS: ABS Basophils 0.1 10^3/ul (0-0.2); ABS Eosinophils 0.4 10^3/ul (0-0.6); ABS Lymphocytes 1.6 10^3/ul (1.0-4.8); ABS Monocytes 0.9 10^3/ul (0-0.8); ABS Neutrophils 7.9 10^3/ul (1.5-7.7); ABS Nucleated RBC 0 10^3/ul; Eosinophil % 3.7 % (0-6); Hematocrit 26 % (42-52); Hemoglobin 8.9 g/dl (14.0-18.0); Lymphocyte % 14.7 % (25-47); Mean Corpuscular HGB Conc 34 g/dl (31-36); Mean Corpuscular Hemoglobin 29 pg (27-31); Mean Corpuscular Volume 85 fL (80-94); Mean Platelet Volume 7.4 um3 (7.4-10.4); Nucleated Red Blood Cells % 0; Platelet Count 336 10^3/ul (150-450); Red Blood Count 3.09 10^6/ul (4.00-5.40); Red Cell Distribution Width 15 % (10.5-15)
[2017-11-12 05:29] LABS: EGFR Non-African American 103.3 (>60)
[2017-11-12] MEDS: Levothyroxine TAB* 175 MCG TAB PO SCH (05:57)
[2017-11-12] MEDS: Heparin VIAL(*) 5000 UNITS/ML VIAL (FIVE THOUSAND) SUBCUT SCH ×3 (05:58→22:31)
[2017-11-12] MEDS: Docusate CAP* 100 MG PO SCH ×2 (07:11→22:29)
[2017-11-12] MEDS: ALPRAZolam TAB* 0.25 MG PO SCH (07:11)
[2017-11-12] MEDS ORDERED: HYDROmorphone INJ* 0.5 MG/0.5 ML SYRINGE IV SLOW PU PRN (08:23)
--- NOTE | 2017-11-12 08:31 | PN ---
Progress Note - Progress Note Date of Service: 11/12/17 SOAP: Subjective: Passing small amounts of flatus, no BM. Still feels distended Tolerating some po-no N/V Objective: Temp Pulse Resp BP Pulse Ox 97.7 F 61 17 118/67 97 11/12/17 07:23 11/12/17 07:23 11/12/17 07:23 11/12/17 07:23 11/12/17 07:23 Intake & Output 11/10/17 11/11/17 11/12/17 11/13/17 06:59 06:59 06:59 06:59 Intake Total 4386 3090 2863 Output Total 475 400 550 Balance 3911 2690 2313 Intake: IV Fluids 3476 990 1318 ABX - ZOSYN 70 230 230 NS (0.9%) 3406 760 1088 IVPB 115 ABX - ZOSYN 115 Oral 910 2100 1430 Output: Urine 475 400 550 Other: Estimated Void Small Large Medium # Bowel Movements 0 0 # Voids 2 1 3 PEX: Comfortable in chair Lungs with decreased breath sounds at bases, clear Abd is soft and distended. Wound vac in place. Bowel sounds are present and are hyperactive-somewhat higher pitched today No redness Ext with mild lower ext edema Laboratory Results - last 24 hr 11/12/17 11/12/17 04:52 04:52 WBC 11.0 H RBC 3.09 L Hgb 8.9 L Hct 26 L MCV 85 MCH 29 MCHC 34 RDW 15 Plt Count 336 MPV 7.4 Neut % (Auto) 72.1 Lymph % (Auto) 14.7 L Grainger % (Auto) 8.6 H Eos % (Auto) 3.7 Baso % (Auto) 0.9 Absolute Neuts (auto) 7.9 H Absolute Lymphs (auto) 1.6 Absolute Monos (auto) 0.9 H Absolute Eos (auto) 0.4 Absolute Basos (auto) 0.1 Absolute Nucleated RBC 0 Nucleated RBC % 0 Sodium 136 Potassium 3.8 Chloride 103 Carbon Dioxide 28 Anion Gap 5 BUN 6 Creatinine 0.76 Est GFR ( Amer) 124.9 Est GFR (Non-Af Amer) 103.3 BUN/Creatinine Ratio 7.9 L Glucose 97 Calcium 7.9 L Assessment: POD#6 s/p ex lap removal of infected abdominal wall mesh with small bowel resection Post-op ileus Open wound WBC down Plan: IV abx PO as tolerated-he remains distended. Still not complete return of GI function. Wound VAC Will d/c SOCK EXAMINER-continue prn narcotic, add toradol subq heparin PPI Increase activity.
[2017-11-12] MEDS: Pantoprazole IV* 40 MG IV SCH (09:36)
[2017-11-12] MEDS: Ketorolac INJ* 30 MG/ML 1 ML VIAL IV PUSH PRN ×2 (11:07→22:33)
[2017-11-12] MEDS: HYDROmorphone INJ1* 1 MG/ML SYRINGE IV SLOW PU PRN ×2 (16:13→18:00)
[2017-11-12] MEDS: ALPRAZolam TAB* 0.25 MG PO PRN ×2 (18:01→23:46)
--- NOTE | 2017-11-12 19:28 | PN ---
Subjective Date of Service: 11/12/17 Interval History: Mr. Mai reports feeling better overall today. He continues to tolerate a full liquid diet well. He continues to pass flatus but has not had a bowel movement. He denies chest pain or SOB. He reports feeling anxious when trying to fall asleep and feels that the oxygen makes him feel better when that happens. He is no longer on the dilaudid LEAD JANITOR and feels that his abdominal pain is much more manageable. He continues to have mild lower extremity edema. Objective Active Medications: Acetaminophen (Tylenol Tab*) 650 mg PO Q4H PRN Al Hydrox/Mg Hydrox/Simethicone (Maalox Plus*) 30 ml PO Q4H PRN Alprazolam (Xanax Tab*) 0.25 mg PO DAILY [facility] Alprazolam (Xanax Tab*) 0.25 mg PO Q6H PRN Docusate Sodium (Colace Cap*) 100 mg PO BID [facility] Heparin Sodium (Porcine) (Heparin Vial(*)) 5,000 units SUBCUT Q8HR [facility] Hydromorphone HCl (Dilaudid Inj1s*) 0.5 mg IV SLOW PU Q1H PRN Piperacillin Sod/Tazobactam (Sod 3.375 gm/ Sodium Chloride) 100 mls @ 25 mls/ hr IVPB 0400,1200,2000 [facility] Sodium Chloride (Ns 0.9% 1000 Ml*) 1,000 mls @ 30 mls/hr IV PER RATE [facility] Ketorolac Tromethamine (Toradol Inj*) 30 mg IV PUSH Q6H PRN Levothyroxine Sodium (Synthroid Tab*) 175 mcg PO 0600 [facility] Naloxone HCl (Narcan*) 0.08 mg IV PUSH .Q2MIN PRN Nitroglycerin (Nitroglycerin Tab 0.4 Mg*) 0.4 mg SL Q5M PRN Ondansetron HCl (Zofran Inj*) 4 mg IV Q6H PRN Pantoprazole Sodium (Protonix Iv*) 40 mg IV Q24H [facility] Vital Signs: Temp Pulse Resp BP Pulse Ox 97.6 F 73 16 116/69 94 11/12/17 16:25 11/12/17 16:25 11/12/17 18:01 11/12/17 16:25 11/12/17 16:25 Oxygen Devices in Use Now: None Appearance: Male sitting up in chair with family at bedside in NAD Eyes: No Scleral Icterus Ears/Nose/Mouth/Throat: Mucous Membranes Moist Neck: Trachea Midline Respiratory: Symmetrical Chest Expansion and Respiratory Effort, Clear to Auscultation Cardiovascular: NL Sounds; No Murmurs; No JVD, - - Mild LE edema, +1 or < Abdominal: NL Sounds; No Tenderness; No Distention, - - Abd binder in situ, wound vac in situ Neurological: Alert and Oriented x 3, NL Muscle Strength and Tone Nutrition: Taking PO's Result Diagrams: 11/12/17 04:52 11/12/17 04:52 Assess/Plan/Problems-Billing Assessment: Mr. Mai is a 62 yr old who is admitted for an infected abdominal mesh. Hospital Medicine was consulted for chest pain. - Patient Problems (1) Infected hernioplasty mesh Comment: - Tolerating full liquids, flatus today but no BM. - Management per surgery. - Encourage mobility. (2) Anxiety Comment: - Continue xanax (3) Chest pain Comment: - Resolved. - Likely anxiety and/or indigestion related, noncardiac. Troponins unremarkable. - Continue IV PPI (4) Hypothyroidism Comment: - Continue synthroid (5) DVT prophylaxis Comment: - Heparin SQ (6) Full code status Comment: Status and Disposition: Dispo per surgery
[2017-11-13] MEDS: HYDROmorphone INJ1* 1 MG/ML SYRINGE IV SLOW PU PRN ×3 (04:17→15:23)
[2017-11-13] MEDS: Piperacillin/Tazobactam VIAL*) 3.375 GM in NS 0.9% 100 ML* 100 ML IVPB SCH ×3 (04:19→19:49)
[2017-11-13] MEDS: NS 0.9% 1000 ML* 1,000 ML IV SCH (04:25)
[2017-11-13] MEDS: Levothyroxine TAB* 175 MCG TAB PO SCH (06:06)
[2017-11-13] MEDS: Heparin VIAL(*) 5000 UNITS/ML VIAL (FIVE THOUSAND) SUBCUT SCH ×3 (06:07→21:31)
[2017-11-13] MEDS: ALPRAZolam TAB* 0.25 MG PO PRN ×2 (06:11→16:51)
[2017-11-13] MEDS: ALPRAZolam TAB* 0.25 MG PO SCH (08:39)
[2017-11-13] MEDS: Docusate CAP* 100 MG PO SCH ×2 (08:40→21:31)
--- NOTE | 2017-11-13 09:33 | PN ---
<Cruz Tolentino - Last Filed: 11/13/17 09:18> Progress Note - Progress Note Date of Service: 11/13/17 Note: S: Pt is POD #7 s/p abscess drainage and infected mesh removal and small bowel resection. Notes dizziness he attributes to anxiety, relieved with alprazolam. His pain is improving; incisional pain remains but is controlled with pain medication. Has been tolerating full liquids well and would like to advance diet. He denies having a BM yet but is passing flatus. Denies NVD, SOB, and CP. O: Temp Pulse Resp BP Pulse Ox 97.9 F 58 18 117/68 96 11/13/17 07:09 11/13/17 07:09 11/13/17 08:39 11/13/17 07:09 11/13/17 07:09 Intake & Output 11/11/17 11/12/17 11/13/17 11/14/17 06:59 06:59 06:59 06:59 Intake Total 3090 2863 1718 Output Total 400 550 775 Balance 2690 2313 943 Intake: IV Fluids 990 1318 228 ABX - ZOSYN 230 230 125 NS (0.9%) 760 1088 103 IVPB 115 ABX - ZOSYN 115 Oral 2100 1430 1490 Output: Urine 400 550 775 Other: Estimated Void Large Medium # Bowel Movements 0 0 # Voids 1 3 VSS. I's and O's suggest retained fluid. Gen: Patient is sitting comfortably in recliner and is in NAD. Son is in the room with him. Heart: RRR. No MRG. Lungs: CTA b/l of anterior upper gutierrez and posterior bases. Abd: Binder and wound vac in place. Vac tubing is patent with about 150 cc serosanguinous fluid collected. Incision is healing well, no signs of infection. Abd is soft, distended. Hypoactive BS. No tenderness to palpation. Ext: 1+ edema b/l without tenderness. Compression stockings in place. WBC 11/06/17 11/07/17 11/08/17 15:19 05:52 11:26 WBC 18.1 10^3/ul H 10^3/ul 18.0 10^3/ul H 10^3/ul 24.0 10^3/ul H 10^3/ul (3.5-10.8) (3.5-10.8) (3.5-10.8) 11/09/17 11/12/17 05:16 04:52 WBC 17.8 10^3/ul H 10^3/ul 11.0 10^3/ul H 10^3/ul (3.5-10.8) (3.5-10.8) WBC is trending downward. A: POD #7 s/p abscess drainage, infected mesh removal, and small bowel resection. P: Advance diet. Increase activity. D/c IV fluids, maintain w/ PO fluids. Continue IV abx. Will d/c IV pain med and start PO pain control after discussing with Dr. Townsend. <Paul Garcia - Last Filed: 11/13/17 16:03> Progress Note - Progress Note Note: Patient seen with Rajan Sen, as noted above. Agree with assessment and plan.
--- NOTE | 2017-11-13 09:35 | PN ---
Progress Note - Progress Note Date of Service: 11/13/17 Note: Surgery Progress: S: Seen w/ PA student, Rajan. (see separate note) Some anxiety last pm; responded to alprazolam. Pain improving. Clary full liqs; would like to move up. Passing flatus; no BM yet. Denies SOB. Ambulating. O: Vital Signs - 8 hr 11/13/17 11/13/17 11/13/17 01:46 03:30 04:17 Temperature 98.0 F Pulse Rate 57 Respiratory 18 16 18 Rate Blood Pressure 124/74 (mmHg) O2 Sat by Pulse 92 Oximetry 11/13/17 11/13/17 11/13/17 05:40 06:11 07:09 Temperature 97.9 F Pulse Rate 58 Respiratory 18 20 16 Rate Blood Pressure 117/68 (mmHg) O2 Sat by Pulse 96 Oximetry 11/13/17 11/13/17 08:38 08:39 Temperature Pulse Rate Respiratory 18 18 Rate Blood Pressure (mmHg) O2 Sat by Pulse Oximetry Intake and Output Last 24 Hours 11/11/17 11/12/17 11/13/17 11/14/17 06:59 06:59 06:59 06:59 Intake Total 3090 2863 1718 Output Total 400 550 775 Balance 2690 2313 943 Intake: IV Fluids 990 1318 228 ABX - ZOSYN 230 230 125 NS (0.9%) 760 1088 103 IVPB 115 ABX - ZOSYN 115 Oral 2100 1430 1490 Output: Urine 400 550 775 Other: Estimated Void Large Medium # Bowel Movements 0 0 # Voids 1 3 PE: see PA note Labs: nothing today A/P: s/p expl lap; removal infected mesh; SB rsxn; postop ileus, improved Adv diet Cont Zosyn (change to Augmentin upon d/c) Cont VAC D/C planning
[2017-11-13] MEDS: Pantoprazole IV* 40 MG IV SCH (10:16)
[2017-11-13] MEDS: Ketorolac INJ* 30 MG/ML 1 ML VIAL IV PUSH PRN (12:45)
--- NOTE | 2017-11-13 16:07 | PN ---
Subjective Date of Service: 11/13/17 Interval History: Mr. Mai reports feeling well today. He is up ambulating on the unit frequently. He has passed more flatus but no stool. He is tolerating a soft diet. He states that his abdominal pain is well controlled. He denies chest pain or SOB. He reports anxiety associated with falling asleep and nightmares. Objective Active Medications: Acetaminophen (Tylenol Tab*) 650 mg PO Q4H PRN Al Hydrox/Mg Hydrox/Simethicone (Maalox Plus*) 30 ml PO Q4H PRN Alprazolam (Xanax Tab*) 0.25 mg PO DAILY [facility] Alprazolam (Xanax Tab*) 0.25 mg PO Q6H PRN Docusate Sodium (Colace Cap*) 100 mg PO BID [facility] Heparin Sodium (Porcine) (Heparin Vial(*)) 5,000 units SUBCUT Q8HR [facility] Hydromorphone HCl (Dilaudid Inj1s*) 0.5 mg IV SLOW PU Q1H PRN Piperacillin Sod/Tazobactam (Sod 3.375 gm/ Sodium Chloride) 100 mls @ 25 mls/ hr IVPB 0400,1200,2000 [facility] Sodium Chloride (Ns 0.9% 1000 Ml*) 1,000 mls @ 30 mls/hr IV PER RATE [facility] Ketorolac Tromethamine (Toradol Inj*) 30 mg IV PUSH Q6H PRN Levothyroxine Sodium (Synthroid Tab*) 175 mcg PO 0600 [facility] Naloxone HCl (Narcan*) 0.08 mg IV PUSH .Q2MIN PRN Nitroglycerin (Nitroglycerin Tab 0.4 Mg*) 0.4 mg SL Q5M PRN Ondansetron HCl (Zofran Inj*) 4 mg IV Q6H PRN Pantoprazole Sodium (Protonix Iv*) 40 mg IV Q24H [facility] Vital Signs: Temp Pulse Resp BP Pulse Ox 98.0 F 65 18 123/64 91 11/13/17 15:23 11/13/17 15:23 11/13/17 15:23 11/13/17 15:23 11/13/17 15:23 Oxygen Devices in Use Now: None Appearance: Male sitting up in chair in NAD Eyes: No Scleral Icterus Ears/Nose/Mouth/Throat: Mucous Membranes Moist Neck: Trachea Midline Respiratory: Symmetrical Chest Expansion and Respiratory Effort, Clear to Auscultation Cardiovascular: NL Sounds; No Murmurs; No JVD, No Edema Abdominal: - - Soft, nontender, BS hyperactive Lymphatic: No Cervical Adenopathy Extremities: - - Trace edema Skin: No Rash or Ulcers, - - Abdominal binder and wound vac in situ Neurological: Alert and Oriented x 3, NL Muscle Strength and Tone Result Diagrams: 11/12/17 04:52 11/12/17 04:52 Microbiology and Other Data: Microbiology 11/06/17 13:08 Anaerobic Culture - Preliminary Wound - Abdominal Bacteroides Vulgatus Skin and Soft Tissue MRSA/MSSA (PCR - Final Mrsa Negative S.aureus Negative Gram Stain - Final Wound Culture - Preliminary Escherichia Coli Klebsiella Oxytoca Gram Negative Bacilli Streptococcus Constellatus Bacteroides Vulgatus Assess/Plan/Problems-Billing Assessment: Mr. Mai is a 62 yr old who is admitted for an infected abdominal mesh. Hospital Medicine was consulted for chest pain. - Patient Problems (1) Infected hernioplasty mesh Comment: - Advanced to soft diet, flatus today but no BM. - Management per surgery. - Encourage mobility. (2) Anxiety Comment: - Continue xanax (3) Chest pain Comment: - Resolved. - Likely anxiety and/or indigestion related, noncardiac. Troponins unremarkable. - Continue IV PPI (4) Hypothyroidism Comment: - Continue synthroid (5) DVT prophylaxis Comment: - Heparin SQ (6) Full code status Comment: Status and Disposition: Dispo per surgery. Patient has remained chest pain free. Hospital Medicine will sign off for now but please do not hesitate to contact us with any further questions or concerns.
[2017-11-13] MEDS ORDERED: HYDROcodone/ACETAMIN 5-325 MG* 1 TAB PO PRN ×2 (16:34)
[2017-11-14] MEDS: HYDROmorphone INJ1* 1 MG/ML SYRINGE IV SLOW PU PRN ×3 (00:24→08:37)
[2017-11-14] MEDS: Piperacillin/Tazobactam VIAL*) 3.375 GM in NS 0.9% 100 ML* 100 ML IVPB SCH ×3 (04:34→19:41)
[2017-11-14] MEDS: Heparin VIAL(*) 5000 UNITS/ML VIAL (FIVE THOUSAND) SUBCUT SCH ×3 (06:25→22:50)
[2017-11-14] MEDS: Levothyroxine TAB* 175 MCG TAB PO SCH (06:25)
--- NOTE | 2017-11-14 09:32 | PN ---
Progress Note - Progress Note Date of Service: 11/14/17 Note: S: Pt is POD #8 s/p expl lap, SB resection, infected mesh removal. His pain is intermittent, controlled with dilaudid. We discussed transitioning to PO pain med and he is agreeable. He has been tolerating full diet. He continues to pass flatus and urine without difficulty, still no BM at this point. He continues to be OOB and walking. Denies CP, SOB, nausea and vomiting. O: Temp Pulse Resp BP Pulse Ox 97.7 F 69 18 135/75 93 11/14/17 07:30 11/14/17 07:30 11/14/17 08:37 11/14/17 07:30 11/14/17 07:30 Intake & Output 11/12/17 11/13/17 11/14/17 11/15/17 06:59 06:59 06:59 06:59 Intake Total 2863 1718 2222 Output Total 742 634 6206 180 Balance 2313 943 1147 -180 Intake: IV Fluids 1318 228 200 ABX - ZOSYN 230 125 NS (0.9%) 1088 103 200 IVPB 115 122 ABX - ZOSYN 115 122 Oral 1430 1490 1900 Output: Urine 160 576 4263 180 Other: Estimated Void Medium # Bowel Movements 0 0 # Voids 3 VSS. I's and O's suggest retaining fluid. Gen: Adult male sitting upright comfortably in chair. In NAD. Heart: RRR. No MRG. Lungs: CTA b/l of upper anterior and lower posterior gutierrez. Abd: Abdominal binder in place, pt requested not to remove binder at this time. Drain is patent, collecting serosanguinous drainage. Ext: 1+ to 2+ edema b/l. No erythema, warmth, or tenderness to calf b/l. A: POD #8 s/p exploratory lap, SB resection, infected mesh removal. Improving. P: Dr. Townsend to F/U later today for full abd exam and change wound vac. Increase activity. Continue IV abx. Transition to PO pain med. Discuss d/c planning.
[2017-11-14] MEDS: Docusate CAP* 100 MG PO SCH ×2 (09:40→19:57)
[2017-11-14] MEDS: Pantoprazole IV* 40 MG IV SCH (09:40)
[2017-11-14] MEDS: Ketorolac INJ* 30 MG/ML 1 ML VIAL IV PUSH PRN ×2 (12:38→19:41)
--- NOTE | 2017-11-14 13:12 | PN ---
Progress Note - Progress Note Date of Service: 11/14/17 SOAP: Subjective: Passing flatus but no BM Tolerating po Pain better controlled Ambulating in halls Objective: Temp Pulse Resp BP Pulse Ox 97.7 F 69 18 135/75 93 11/14/17 07:30 11/14/17 07:30 11/14/17 10:38 11/14/17 07:30 11/14/17 07:30 Intake & Output 11/12/17 11/13/17 11/14/17 11/15/17 06:59 06:59 06:59 06:59 Intake Total 2863 1718 2222 200 Output Total 001 618 3024 420 Balance 2313 943 1147 -220 Intake: IV Fluids 1318 228 200 ABX - ZOSYN 230 125 NS (0.9%) 1088 103 200 IVPB 115 122 100 ABX - ZOSYN 115 122 100 Oral 1430 1490 1900 100 Output: Urine 093 001 9490 420 Other: Estimated Void Medium # Bowel Movements 0 0 # Voids 3 PEX: Comfortable Lungs are clear Abd is soft and distended. Wound vac in place. Bowel sounds are present and are hyperactive, not high pitched. No redness Ext with mild edema ankles Assessment: POD# 8 s/p ex lap and removal of infected mesh, small bowel resection Ileus-resolving Plan: Continue IV abx--will plan on oral abx on discharge Wound VAC-will change today--plan for home use Advance diet Oral analgesia PPI and subq heparin Discussed D/C with him and son-he is reluctant to go home too soon-next 24-48 will be ready for d/c
[2017-11-14] MEDS: ALPRAZolam TAB* 0.25 MG PO PRN (20:35)
[2017-11-15] MEDS: Ketorolac INJ* 30 MG/ML 1 ML VIAL IV PUSH PRN ×3 (02:07→21:12)
[2017-11-15] MEDS: ALPRAZolam TAB* 0.25 MG PO PRN ×3 (02:38→17:07)
[2017-11-15] MEDS: Piperacillin/Tazobactam VIAL*) 3.375 GM in NS 0.9% 100 ML* 100 ML IVPB SCH ×3 (04:24→19:31)
[2017-11-15] MEDS: Levothyroxine TAB* 175 MCG TAB PO SCH (06:26)
[2017-11-15] MEDS: Heparin VIAL(*) 5000 UNITS/ML VIAL (FIVE THOUSAND) SUBCUT SCH ×3 (06:27→21:12)
[2017-11-15] MEDS: Docusate CAP* 100 MG PO SCH ×2 (08:40→19:38)
[2017-11-15] MEDS: Pantoprazole IV* 40 MG IV SCH (08:40)
--- NOTE | 2017-11-15 09:22 | PN ---
Progress Note - Progress Note Date of Service: 11/15/17 SOAP: Subjective: Doing well Slept better Tolerating po Ready to go home Objective: Temp Pulse Resp BP Pulse Ox 98.3 F 61 18 128/66 96 11/15/17 07:30 11/15/17 07:30 11/15/17 08:48 11/15/17 07:30 11/15/17 07:30 Intake & Output 11/13/17 11/14/17 11/15/17 11/16/17 06:59 06:59 06:59 06:59 Intake Total 1718 2222 2150 Output Total 775 1075 1495 300 Balance 943 1147 655 -300 Intake: IV Fluids 228 200 120 ABX - ZOSYN 125 NS (0.9%) 103 200 120 IVPB 122 200 ABX - ZOSYN 122 200 Oral 1490 1900 1830 Output: Urine 775 1075 1495 300 Other: # Bowel Movements 0 0 PEX: Comfortable Lungs are clear Abd is soft and slightly distended. Bowel sounds are present;wound vac in place Assessment: S/P removal of infected abd wall mesh, small bowel resection, Plan: D/C home today Wound vac Oral abx Outpatient f/u wound center next week Instructions given.
[2017-11-15] MEDS ORDERED: NS 0.9% 100 ML* 100 ML ONE (12:48)
[2017-11-15] MEDS: Al Hydrox/Mg Hydrox/Simet LIQ* 30 ML UDC PO PRN (22:53)
[2017-11-15] MEDS: Acetaminophen TAB* 325 MG PO PRN (23:19)
[2017-11-16] MEDS: Piperacillin/Tazobactam VIAL*) 3.375 GM in NS 0.9% 100 ML* 100 ML IVPB SCH ×3 (03:55→19:52)
[2017-11-16] MEDS: Heparin VIAL(*) 5000 UNITS/ML VIAL (FIVE THOUSAND) SUBCUT SCH ×3 (06:55→21:55)
[2017-11-16] MEDS: Ketorolac INJ* 30 MG/ML 1 ML VIAL IV PUSH PRN (06:56)
--- NOTE | 2017-11-16 08:33 | PN ---
Progress Note - Progress Note Date of Service: 11/16/17 Note: Surgery Mr. Mai had an episode of copious vomiting last night, reported to be about 1 liter. He says that he feels better now. He had BM yesterday and is still passing flatus. He denies pain. Vital Signs 11/15/17 11/15/17 11/15/17 08:48 11:20 11:29 Temperature 97.8 F Pulse Rate 65 Respiratory 18 18 18 Rate Blood Pressure 120/68 (mmHg) O2 Sat by Pulse 99 Oximetry 11/15/17 11/15/17 11/15/17 17:07 18:59 19:25 Temperature 98.0 F Pulse Rate 78 Respiratory 18 18 16 Rate Blood Pressure 112/58 (mmHg) O2 Sat by Pulse 95 Oximetry 11/15/17 11/16/17 11/16/17 19:39 00:50 02:01 Temperature 98.1 F Pulse Rate 76 Respiratory 16 16 Rate Blood Pressure 125/74 (mmHg) O2 Sat by Pulse 95 97 Oximetry 11/16/17 07:29 Temperature 98.4 F Pulse Rate 65 Respiratory 16 Rate Blood Pressure 119/66 (mmHg) O2 Sat by Pulse 97 Oximetry Abd: good BS, soft, non-tender, VAC in place Intake & Output 11/15/17 11/16/17 11/16/17 22:59 06:59 14:59 Intake Total 240 496 Output Total 350 300 Balance -110 196 Intake: IV Fluids 32 NS (0.9%) 32 IVPB 224 ABX - ZOSYN 224 Oral 240 240 Output: Urine 350 300 POD#10, Now with ileus; will keep NPO for now, consider advancing later today if no further vomiting. Will check AXR and labs in AM.
--- NOTE | 2017-11-16 08:38 | RAD ---
INDICATION: Vomiting and emesis postop COMPARISON: CT abdomen pelvis November 04, 2017 TECHNIQUE: Supine and upright views of the abdomen were obtained. FINDINGS: In the supine view there are dilated air-filled loops of small bowel concentrated in the left upper abdomen measuring 5.4 cm in diameter. On the standing views there are multiple air-fluid levels throughout the small bowel. There is no definite free intraperitoneal gas seen on the upright views below the diaphragm. Small amount of stool is seen overlying the expected location of the rectum. IMPRESSION: Pathologically dilated proximal small loops of small bowel with air-fluid levels could be due to ileus in this patient reported to be recently postoperation. There is no definite free intraperitoneal gas.
[2017-11-16] MEDS: Pantoprazole IV* 40 MG IV SCH (09:00)
[2017-11-16] MEDS: Docusate CAP* 100 MG PO SCH ×2 (09:00→19:49)
[2017-11-16] MEDS: D5W 1/2 NS KCl 20 Meq 1000 ML* 1,000 ML IV SCH (09:00)
[2017-11-16] MEDS: Levothyroxine TAB* 175 MCG TAB PO SCH (09:02)
[2017-11-16 10:06] LABS: EGFR Non-African American 74.4 (>60)
[2017-11-17] MEDS: Ketorolac INJ* 30 MG/ML 1 ML VIAL IV PUSH PRN ×2 (00:04→06:04)
[2017-11-17] MEDS: D5W 1/2 NS KCl 20 Meq 1000 ML* 1,000 ML IV SCH ×2 (01:02→15:41)
[2017-11-17] MEDS: Piperacillin/Tazobactam VIAL*) 3.375 GM in NS 0.9% 100 ML* 100 ML IVPB SCH ×2 (03:53→13:21)
[2017-11-17] MEDS: Heparin VIAL(*) 5000 UNITS/ML VIAL (FIVE THOUSAND) SUBCUT SCH ×2 (05:37→13:20)
[2017-11-17] MEDS: Levothyroxine TAB* 175 MCG TAB PO SCH (05:37)
--- NOTE | 2017-11-17 08:02 | RAD ---
INDICATION: Evaluate paralytic ileus. COMPARISON: Comparison is made with a prior CT of the abdomen and pelvis from November 04, 2017 and a prior abdominal series from November 16, 2017. TECHNIQUE: Supine and upright views of the abdomen were obtained. FINDINGS: There is moderate distention of multiple proximal and mid small bowel loops with air-fluid levels which appears similar to the prior study. No free intraperitoneal air is seen. There appears to be a abdominal wall mesh graft present. Images at the lung bases demonstrate small bibasilar infiltrates suggestive of atelectasis. IMPRESSION: FINDINGS SUGGESTIVE OF A PARTIAL SMALL BOWEL OBSTRUCTION LESS LIKELY PARALYTIC ILEUS, UNCHANGED.
[2017-11-17] MEDS: Docusate CAP* 100 MG PO SCH (09:26)
[2017-11-17] MEDS: ALPRAZolam TAB* 0.25 MG PO PRN ×2 (09:43→18:19)
[2017-11-17] MEDS: Pantoprazole IV* 40 MG IV SCH (09:43)
[2017-11-17 11:10] LABS: ABS Basophils 0.1 10^3/ul (0-0.2); ABS Eosinophils 0.3 10^3/ul (0-0.6); ABS Lymphocytes 1.9 10^3/ul (1.0-4.8); ABS Monocytes 0.7 10^3/ul (0-0.8); ABS Neutrophils 5.9 10^3/ul (1.5-7.7); ABS Nucleated RBC 0 10^3/ul; Eosinophil % 3.3 % (0-6); Hematocrit 27 % (42-52); Hemoglobin 9.1 g/dl (14.0-18.0); Mean Corpuscular HGB Conc 34 g/dl (31-36); Mean Corpuscular Hemoglobin 29 pg (27-31); Mean Corpuscular Volume 85 fL (80-94); Mean Platelet Volume 8.3 um3 (7.4-10.4); Nucleated Red Blood Cells % 0; Platelet Count 405 10^3/ul (150-450); Red Blood Count 3.16 10^6/ul (4.00-5.40); Red Cell Distribution Width 15 % (10.5-15); White Blood Count 8.9 10^3/ul (3.5-10.8)
[2017-11-17] MEDS ORDERED: Iohexol 300* (CONTRAST) 10 ML SDV IV ONE (12:12)
--- NOTE | 2017-11-17 13:58 | RAD ---
Indication: Small bowel obstruction. Contrast: Administered 128.3 ml of OMNIPAQUE 300 mg/ml CT of the abdomen and pelvis was performed after oral and IV contrast demonstration. Coronal and sagittal reconstructed images were obtained. Comparison is made with previous exam dated November 04, 2017. The lung bases demonstrate small right pleural effusion with right basilar atelectasis. Left there is a subcapsular fluid collection measuring 2.4 cm in length x 4.5 cm in width x 1.8 cm in greatest AP dimension suspicious for a subcapsular abscess in the dome of the right lobe of liver. This was not present on prior CT of November 04, 2017. The spleen is normal in size. The heart demonstrates no pericardial effusion. The pancreas demonstrates no mass or pancreatic duct dilatation. The spleen is normal in size. No adrenal lesions are noted. The kidneys demonstrate symmetric nephrograms without focal lesions. Pancreas shows no mass or pancreatic duct dilatation. Common duct is not dilated. Gallbladder demonstrates no calcified gallstones. There are dilated loops of small bowel predominantly in the mid and left abdomen. There are collapsed loops of distal ileum noted. Findings are consistent with small bowel obstruction. The exact zone of transition is not clearly identified. Previous identified abscess in the right lower quadrant is no longer present. CT of the pelvis demonstrates collapse: With anastomotic sutures. Urinary bladder is unremarkable. IMPRESSION: Findings consistent with small bowel obstruction. Exact zone of transition is not clearly identified. Previously identified abscess collection in the anterior abdominal wall is no longer present. There is a fluid collection in the dome of the liver which may represent a subcapsular abscess.
[2017-11-17 14:26] VITALS: BP 105/60
[2017-11-17] MEDS: Acetaminophen TAB* 325 MG PO PRN (15:41)
--- NOTE | 2017-11-17 16:01 | PN ---
Progress Note - Progress Note Date of Service: 11/17/17 SOAP: Subjective: Events of the weekend noted He vomited Friday night, no N/V since He has been tolerating clear liquids the last 24 hrs, had 3 BM's today and is passing flatus. Minimal abdominal pain Objective: Temp Pulse Resp BP Pulse Ox 97.5 F 51 16 105/60 100 11/17/17 11:44 11/17/17 11:44 11/17/17 11:44 11/17/17 11:44 11/17/17 11:44 Intake & Output 11/15/17 11/16/17 11/17/17 11/18/17 06:59 06:59 06:59 06:59 Intake Total 2150 1752.1 2332 710 Output Total 1495 952 600 300 Balance 655 800.1 1732 410 Weight 211 lb Intake: IV Fluids 120 92.1 1432 ABX - ZOSYN 160 D5W 1/2 NS 20 meq KCL 1272 NS (0.9%) 120 92.1 IVPB 200 460 ABX - ZOSYN 200 460 Oral 1830 1200 900 710 Output: Urine 1495 952 600 300 Other: Estimated Void Medium Medium Date of Last Bowel 11/15/2017 11/17/17 Movement # Bowel Movements 1 1 Estimated Stool Amount Medium Small # Voids 1 PEX: Comfortable Lungs are clear Abd is soft and slightly distended. Wound vac in place. Bowel sounds are present and are normoactive. Minimal incisional tenderness. Ext with out edema. Laboratory Results - last 24 hr 11/17/17 10:44 WBC 8.9 RBC 3.16 L Hgb 9.1 L Hct 27 L MCV 85 MCH 29 MCHC 34 RDW 15 Plt Count 405 MPV 8.3 Neut % (Auto) 66.7 Lymph % (Auto) 21.0 L [place] % (Auto) 7.8 H Eos % (Auto) 3.3 Baso % (Auto) 1.2 Absolute Neuts (auto) 5.9 Absolute Lymphs (auto) 1.9 Absolute Monos (auto) 0.7 Absolute Eos (auto) 0.3 Absolute Basos (auto) 0.1 Absolute Nucleated RBC 0 Nucleated RBC % 0 CT reviewed--11/17--some proximal small bowel distension with some distal collapsed small bowel, consistent with possible SBO. Some fluid above the liver. Assessment: S/P ex lap with small bowel resection and removal of infected mesh Vomiting-resolved; he is passing gas and having BM's and has no N/V and has tolerated clear liquids the last [address] Plan: Despite CT findings he is doing well and there is no indication for surgery at this point. This is at most a partial small bowel obstruction and clinically he is doing well and having BM's and passing flatus. He would like to go home-I feel this is acceptable and he will stay on clear liquids and will follow up in the wound center on Friday and will check his progress then and advance diet as tolerated. I instructed him to call sooner if he has fever, N/V, severe abdominal pain or other symptoms He will stay on Augmentin.
== END 2017-11-17 18:20 | disposition home health service (06) | DRG 711 ==
LOC: OR 09:36 → SSU 16:14 → MEDTELE 11-08 08:08 → SSU 11-09 14:10
PROVIDERS: ADMIT Surgery; ATTEND Surgery
PROC: 0DB80ZZ Excision of Small Intestine, Open Approach (ICD-10-PCS; 2017-11-06)
PROC: 0WPF0JZ Removal of Synthetic Substitute from Abdominal Wall, Open Approach (ICD-10-PCS; 2017-11-06)
PROC: 0W9F0ZZ Drainage of Abdominal Wall, Open Approach (ICD-10-PCS; principal; 2017-11-06 12:00)
DX: T85.79XA Infection and inflammatory reaction due to other internal prosthetic devices, implants and grafts, initial encounter (principal); L02.211 Cutaneous abscess of abdominal wall; K63.2 Fistula of intestine; K56.7 Ileus, unspecified; E03.9 Hypothyroidism, unspecified; F17.210 Nicotine dependence, cigarettes, uncomplicated; K42.9 Umbilical hernia without obstruction or gangrene; R74.8 Abnormal levels of other serum enzymes; R11.10 Vomiting, unspecified; E66.9 Obesity, unspecified; R07.9 Chest pain, unspecified; F41.9 Anxiety disorder, unspecified; Z80.41 Family history of malignant neoplasm of ovary; Z85.46 Personal history of malignant neoplasm of prostate; Z80.42 Family history of malignant neoplasm of prostate; Z80.0 Family history of malignant neoplasm of digestive organs; Z83.79 Family history of other diseases of the digestive system; Z90.79 Acquired absence of other genital organ(s); Z68.32 Body mass index [BMI] 32.0-32.9, adult; Z97.2 Presence of dental prosthetic device (complete) (partial)
CPT/HCPCS: 36415; 74019; 74177; 80048; 80053; 83735; 84484; 85025; 87070; 87073; 87076; 87077; 87186; 87205; 87640; 87641; 88307; 93005; A9270-GY; C1776; J1170; J1644; J1885; J2250; J2405; J2543; J2704; J2710; J3010; Q9967

== ENCOUNTER 2019-05-03 09:25 | Day surgery (SDC) | payer BC, MEDICARE ==
[~2019-05-03 09:25] MED LIST changes: +Acetaminophen TAB* 325 MG PO ONE; -Buffered Lidocaine 0.9% SYRIN* 5 ML/SYR SYRINGE INTRADERM ONE; +Buffered Lidocaine 1% SYRIN* 1 ML/SYRINGE INTRADERM ONE; +Lactated Ringers 1000 ML Bag* 1,000 ML IV SCH; -Sodium Citrate/Citric Acid* 15 ML UDC PO ONE; -ZOSYN 3.375 GM x ONE DOSE over 30 miuntes IVPB
[2019-05-03] MEDS ORDERED: fentaNYL* 50 MCG/ML 5 ML VIAL (250 MCG VIAL) ONE (09:35)
[2019-05-03] MEDS ORDERED: Lidocaine 2% PF * 5 ML VIAL ONE (09:36)
[2019-05-03] MEDS ORDERED: Midazolam* 1 MG/ML 2 ML VIAL (2 MG) ONE (09:36)
[2019-05-03] MEDS ORDERED: Propofol* 10 MG/ML 20 ML BTL ONE ×4 (09:36→13:05)
[2019-05-03] MEDS ORDERED: Rocuronium* 10 MG/ML VIAL ONE ×3 (09:36→13:51)
[2019-05-03] MEDS ORDERED: Buffered Lidocaine 1% SYRIN* 1 ML/SYRINGE INTRADERM ONE (09:48)
[2019-05-03] MEDS ORDERED: ceFAZolin 2 GM in NS PREMIX(*) 2 GM/100 ML BAG IVPB ONE (09:48)
[2019-05-03] MEDS ORDERED: Acetaminophen TAB* 325 MG ONE (09:48)
[2019-05-03] MEDS ORDERED: Bupivacaine 0.5%* 50 ML MDV VIAL ONE (10:47)
[2019-05-03] MEDS ORDERED: diPHENhydraMINE IV* 50 MG/ML 1 ml VIAL (BENADRYL) IV PRN (11:48)
[2019-05-03] MEDS ORDERED: oxyCODONE TAB* 5 MG TAB PO PRN (11:48)
[2019-05-03] MEDS ORDERED: Naloxone* 0.4 MG/ML 1 ML VIAL IV PRN (11:48)
[2019-05-03] MEDS ORDERED: PROCHLORPERAZINE INJ 5 MG/ML 2 ML VIAL IV PRN (11:48)
[2019-05-03] MEDS ORDERED: Dexamethasone IV* 4 MG/ML 1 ML (4 MG) ONE (12:06)
[2019-05-03] MEDS ORDERED: EPHEDrine (Pressors)* 50 MG/ML VIAL ONE (12:20)
[2019-05-03] MEDS ORDERED: HYDROmorphone INJ1* 1 MG/ML SYRINGE ONE ×2 (12:40→15:17)
[2019-05-03] MEDS ORDERED: Ondansetron INJ* 2 MG/ML VIAL ONE (13:17)
[2019-05-03] MEDS ORDERED: Ketorolac INJ* 30 MG/ML 1 ML VIAL ONE (13:17)
[2019-05-03] MEDS ORDERED: Sugammadex * 500 MG/5 ML VIAL IV PUSH ONE (14:03)
[2019-05-03] MEDS ORDERED: HYDROmorphone INJ* 0.5 MG/0.5 ML SYRINGE ONE (14:21)
[2019-05-03] MEDS ORDERED: oxyCODONE TAB* 5 MG TAB ONE (15:16)
[2019-05-03] MEDS: HYDROmorphone INJ1* 1 MG/ML SYRINGE IV PRN ×2 (15:18→16:05)
[2019-05-03 16:37] VITALS: BP 125/73
--- NOTE | 2019-05-04 05:40 | OP ---
DATE OF OPERATION: 05/03/19 - [facility] DATE OF : 51 ATTENDING SURGEON: Donny Oneal MD [employer] CONSULTANT: Anita Spivey NP PRE-OP DIAGNOSIS: Ventral incisional hernia. POST-OP DIAGNOSIS: Four ventral incisional hernias. OPERATIVE PROCEDURE: Robotic lysis of adhesion and repair of ventral incisional hernias x4. INDICATIONS FOR PROCEDURE: Symptomatic ventral incisional hernia. Risks of surgery, included but not limited to bleeding, infection, injury to intra- abdominal contents including the bowel, recurrence of the hernia and others explained to the patient. He seemed to understand and agreed to the procedure and all questions were answered. DESCRIPTION OF PROCEDURE: The patient was taken to the operating room, placed supine. Preoperative antibiotics were given. After the successful induction of general endotracheal anesthesia, the abdomen was prepped and draped in a sterile fashion. A left upper quadrant trocar was placed under direct visualization of the camera. Using a bladeless Optiview trocar, pneumoperitoneum was achieved to 12 mmHg. The camera was placed in the abdomen. The abdomen was scanned and there was no obvious injury from trocar placement. A left lateral and left lower quadrant trocar were placed under direct visualization of the camera. A third robotic trocar was then placed in the left upper quadrant more lateral to the initial bladeless Optiview trocar. This was replaced with an AirSeal trocar. The patient was tilted slightly towards the right. The robot was brought in and docked. Numerous small bowel adhesions were noted to the anterior abdominal wall at the midline, some of which were going into one of the hernias. These were gently taken down along avascular planes, they were densely adhered, but they were numerous and significantly increased the length of the operation by approximately 1 hour. Once all the adhesions were lysed to the anterior abdominal wall and they were taken out of 1 of the 4 hernias along the midline incision, all close to each other. Then the hernia sacs were excised from each hernia using scissors and cautery. Each of these was placed into an Endobag and removed through the port site assist. All 4 hernias were closed with running 0 PDS, barbed suture running along the midline. Three separate sutures were used to close. After these were closed, a 10 x 6 OviTex 6-ply mesh was then placed in the abdomen, covering the defect, and sutured in place with running 3-0 V-Loc and 2-0 V-Loc/ barbed suture. The entire incision line that was repaired was covered. OviTex was placed in a normal fashion with adhesive barrier side towards the bowel. The bowel was inspected. All of the bowel that had been lysed and removed from its adhesions to the anterior abdominal wall appeared normal. EBL was minimal. Hemostasis was intact. Pneumoperitoneum was released from the abdomen and the trocars were removed. The skin was closed with 3- 0 Monocryl and glue was applied to the skin. The patient tolerated the procedure well, was extubated and taken to the recovery area in stable condition. [id number] #: [id number] MTDD
== END 2019-05-03 17:14 | disposition home or self-care (01) ==
LOC: OR 09:25
PROVIDERS: ATTEND Surgery
DX: K43.2 Incisional hernia without obstruction or gangrene (principal); K66.0 Peritoneal adhesions (postprocedural) (postinfection); F17.210 Nicotine dependence, cigarettes, uncomplicated; E03.9 Hypothyroidism, unspecified; F41.9 Anxiety disorder, unspecified
CPT/HCPCS: 49654; S2900; A9270-GY; C1781; J0690; J1100; J1170; J1885; J2250; J2405; J2704; J3010; J3490

== ENCOUNTER 2020-11-13 05:36 | Observation (INO) ==
[2020-11-13] MEDS ORDERED: Lactated Ringers 1000 ml BAG 1,000 ML IV SCH (06:00)
[2020-11-13] MEDS ORDERED: Buffered Lidocaine 1% SYRIN 1 ml INTRADERM ONE (06:16)
[2020-11-13] MEDS ORDERED: ceFAZolin 2 GM in NS PREMIX 2 GM/100 ML BAG IVPB ONE (06:16)
[2020-11-13] MEDS: Buffered Lidocaine 1% SYRIN 1 ml INTRADERM ONE ×2 (06:34→06:36)
[2020-11-13] MEDS ORDERED: Rocuronium 50 mg VIAL 10 mg/ml 5 ml VIAL (50 mg) ONE ×4 (06:47→10:37)
[2020-11-13] MEDS ORDERED: fentaNYL 250 mcg/5 ml 50 MCG/ML 5 ml VIAL (250 MCG) ONE (06:48)
[2020-11-13] MEDS ORDERED: Midazolam 2 mg/2 ml VIAL 1 mg/ml 2 ml VIAL (2 mg) ONE (06:48)
[2020-11-13] MEDS ORDERED: Dexamethasone IV 4 MG/ML VIAL 1 ml VIAL ONE (06:48)
[2020-11-13] MEDS ORDERED: Lidocaine 2% PF 5 ML VIAL ONE (06:48)
[2020-11-13] MEDS ORDERED: Ondansetron 4 mg VIAL 2 MG/ML 2 ml VIAL ONE ×2 (06:48→10:36)
[2020-11-13] MEDS ORDERED: Propofol 10 MG/ML 20 ML BTL ONE ×5 (06:48→11:20)
[2020-11-13] MEDS ORDERED: Sodium Citrate/Citric Acid LIQ 15 ML UDC PO ONE (07:05)
[2020-11-13] MEDS ORDERED: Sodium Citrate/Citric Acid LIQ 15 ML UDC ONE (07:06)
[2020-11-13] MEDS ORDERED: Bupivacaine 0.5% SDV PF 30ML VIAL ONE (07:19)
[2020-11-13] MEDS ORDERED: Propofol 0 MG/0 ML BTL ONE (08:19)
[2020-11-13] MEDS ORDERED: Naloxone 0.4 mg VIAL 0.4 mg/ml 1 ml VIAL IV PRN (08:24)
[2020-11-13] MEDS ORDERED: Acetaminophen IV 1 GM/100ML 100 ML IV PRN (08:24)
[2020-11-13] MEDS ORDERED: DiMENhydriNATE IV 50 mg/ml 1 ml VIAL IV PUSH PRN (08:30)
[2020-11-13] MEDS ORDERED: fentaNYL 100 mcg/2 ml 50 MCG/ML VIAL IV PRN (08:30)
[2020-11-13] MEDS ORDERED: Sugammadex 500 MG/5 ML 5 ml VIAL IV PUSH ONE (08:34)
[2020-11-13] MEDS ORDERED: Phenylephrine 40 mcg/mL 10mL (400mcg) SYRINGE ONE (08:47)
[2020-11-13] MEDS ORDERED: fentaNYL 100 mcg/2 ml 50 MCG/ML VIAL ONE ×3 (09:42→13:37)
[2020-11-13] MEDS ORDERED: Phenylephrine IV 10 MG/ML 1 ml VIAL ONE (09:49)
[2020-11-13] MEDS ORDERED: Propofol 1,000 MG/100 ML BTL ONE (11:21)
[2020-11-13] MEDS ORDERED: ceFAZolin VIAL VIAL ONE (11:51)
[2020-11-13] MEDS ORDERED: Bacitracin OINTMENT TUBE ONE (12:08)
[2020-11-13] MEDS ORDERED: Levalbuterol 0.63MG/3ML NEB UNIT OF USE INH ONE ×2 (12:31→13:00)
[2020-11-13] MEDS ORDERED: HYDROmorphone 1 MG/1 ML SYRINGE ONE (12:38)
[2020-11-13] MEDS ORDERED: Acetaminophen IV 1 GM/100ML 100 ML IV ONE (12:38)
[2020-11-13] MEDS: HYDROmorphone 1 MG/1 ML SYRINGE IV PRN ×5 (12:39→13:36)
[2020-11-13] MEDS: LACTATED RINGERS 1000 ML BAG IV SCH (17:50)
[2020-11-13] MEDS ORDERED: Albuterol/Ipratropium NEB.SOL (2.5/0.5 MG) 3 ML NEB.SOLN INH PRN (18:05)
[2020-11-14] MEDS: HYDROmorphone 0.5 MG/0.5 ML SYRINGE IV PRN ×2 (05:46→17:30)
[2020-11-14] MEDS: LACTATED RINGERS 1000 ML BAG IV SCH (08:37)
[2020-11-14] MEDS ORDERED: Flu vaccine *QUAD* 2021-22* 0.5 ML SYRINGE IM ONE (09:00)
[2020-11-14 10:55] LABS: PCO2 Arterial 35 mmHg (35-45)
[2020-11-14 11:11] LABS: PO2 Arterial 59 mmHg (80-100)
[2020-11-14 11:19] LABS: ABS Basophils 0.1 10^3/ul (0-0.2); ABS Eosinophils 0.2 10^3/ul (0-0.6); ABS Lymphocytes 0.8 10^3/ul (1.0-4.8); ABS Monocytes 1.3 10^3/ul (0-0.8); ABS Neutrophils 13.8 10^3/ul (1.5-7.7); Hematocrit 44 % (42-52); Hemoglobin 15.2 g/dL (14.0-18.0); Mean Corpuscular HGB Conc 34 g/dL (31-36); Mean Corpuscular Hemoglobin 32 pg (27-31); Mean Corpuscular Volume 95 fL (80-94); Mean Platelet Volume 8.7 fL (7.4-10.4); Nucleated Red Blood Cells % 0.1; Platelet Count 219 10^3/uL (150-450); Red Blood Count 4.69 10^6 /uL (4.18-5.48); Red Cell Distribution Width 14 % (10-15); White Blood Count 16.1 10^3/uL (3.5-10.8)
[2020-11-14] MEDS ORDERED: Furosemide 20 mg/2 ml IV VIAL IV ONE (11:23)
[2020-11-14 11:59] LABS: Albumin 3.7 g/dL (3.2-5.2); Albumin/Globulin Ratio 1.1 (1-3); Calcium 8.6 mg/dL (8.6-10.3); EGFR African American 104.5 (>60); EGFR Non-African American 86.4 (>60); Globulin 3.3 g/dL (2-4); Potassium 4.2 mmol/L (3.5-5.0); Total Bilirubin 0.8 mg/dL (0.2-1.0)
[2020-11-14] MEDS: Albuterol HFA INHALER 8 gm MDI INH PRN (14:21)
[2020-11-14 14:36] LABS: Urine Appearance Clear; Urine Bilirubin Negative (Negative); Urine Blood Negative (Negative); Urine Color Yellow; Urine Glucose Negative (Negative); Urine Ketones Negative (Negative); Urine Nitrite Negative (Negative); Urine Protein Negative (Negative); Urine Specific Gravity 1.013 (1.002-1.030); Urine Urobilinogen Negative (Negative)
[2020-11-14] MEDS ORDERED: Iohexol 300 (CONTRAST) 10 ML SDV IV ONE (17:25)
[2020-11-14 18:23] LABS: Hematocrit 46 % (42-52); Hemoglobin 15.6 g/dL (14.0-18.0); Mean Corpuscular HGB Conc 34 g/dL (31-36); Mean Corpuscular Hemoglobin 32 pg (27-31); Mean Corpuscular Volume 95 fL (80-94); Mean Platelet Volume 8.8 fL (7.4-10.4); Platelet Count 225 10^3/uL (150-450); Red Blood Count 4.86 10^6 /uL (4.18-5.48); Red Cell Distribution Width 14 % (10-15); White Blood Count 16.2 10^3/uL (3.5-10.8)
[2020-11-14 18:25] LABS: ABS Basophils 0.1 10^3/ul (0-0.2); ABS Eosinophils 0.2 10^3/ul (0-0.6); ABS Lymphocytes 1.4 10^3/ul (1.0-4.8); ABS Monocytes 1.6 10^3/ul (0-0.8); Lymphocyte % 8.6 %
[2020-11-14 18:32] LABS: Activated Partial Thrombo Time 28.8 seconds (26.0-38.0); INR 1.2 (0.86-1.15)
[2020-11-14 18:40] LABS: EGFR African American 96.9 (>60)
[2020-11-14] MEDS: Heparin 5000 UNITS/ML 1 mL VIAL SUBCUT SCH (21:42)
[2020-11-15] MEDS: Albuterol HFA INHALER 8 gm MDI INH PRN ×3 (00:57→14:26)
[2020-11-15] MEDS: Heparin 5000 UNITS/ML 1 mL VIAL SUBCUT SCH ×2 (05:19→13:08)
[2020-11-15] MEDS ORDERED: Perflutren Lipid Microsphere 3 ML VIAL ONE (07:47)
[2020-11-15 09:30] LABS: Hematocrit 45 % (42-52); Hemoglobin 15.7 g/dL (14.0-18.0); Mean Corpuscular HGB Conc 35 g/dL (31-36); Mean Corpuscular Hemoglobin 33 pg (27-31); Mean Corpuscular Volume 94 fL (80-94); Mean Platelet Volume 9.1 fL (7.4-10.4); Platelet Count 233 10^3/uL (150-450); Red Blood Count 4.82 10^6 /uL (4.18-5.48); Red Cell Distribution Width 14 % (10-15); White Blood Count 17.3 10^3/uL (3.5-10.8)
[2020-11-15 09:38] LABS: ABS Basophils 0.1 10^3/ul (0-0.2); ABS Eosinophils 0.1 10^3/ul (0-0.6); ABS Lymphocytes 1.3 10^3/ul (1.0-4.8); ABS Monocytes 1.8 10^3/ul (0-0.8); Eosinophil % 0.9 %; Lymphocyte % 7.5 %
[2020-11-15 09:55] LABS: Calcium 9.1 mg/dL (8.6-10.3); EGFR African American 96.9 (>60); Potassium 3.8 mmol/L (3.5-5.0)
[2020-11-15] MEDS ORDERED: Polyethylene Glycol 3350 17 GM PACKET PO STA (11:18)
[2020-11-15 11:25] VITALS: BP 107/68
== END 2020-11-15 16:10 | disposition home or self-care (01) ==
LOC: SSU 05:36 → OR 05:36
PROVIDERS: ADMIT Surgery; ATTEND Surgery